=== PATIENT | female | born 1945 | race Hispanic/Latino ===

== ENCOUNTER 2020-01-26 06:04 | Emergency (ER) | payer MEDICARE, OTHER ==
--- NOTE | 2020-01-26 07:12 | CT ---
CT OF BRAIN WITHOUT CONTRAST: Date: 01/26/2020 INDICATION: History of fall. COMPARISON: Prior exam dated 08/02/2014. FINDINGS: There is generalized cerebral and cerebellar atrophy with mild chronic small vessel white matter isch emic change. Septum pellucidum and third ventricle are midline. No acute infarct, hemorrhage, or hydr ocephalus is present. Skull intact. Mild mucosal thickening seen within the ethmoid air cells. There is a left parietal scalp contusion. IMPRESSION: 1. No acute intracranial abnormality. 2. Left parietal scalp contusion. 3. Generalized cerebral and cerebellar atrophy. 4. Mild chronic small vessel white matter ischemic change. POS: BH
--- NOTE | 2020-01-26 07:14 | CT ---
CT CERIVCAL SPINE WITHOUT CONTRAST: Date: 01/26/2020 INDICATION: History of fall with neck pain. COMPARISON: Prior exam dated 08/02/2014. FINDINGS: No definite acute fracture or subluxation is evident. There is worsening multilevel disc degenerative disease of the cervical spine most pronounced at C3-4, C6-7, and C7-T1. Craniocervical junction is n ormal appearing. The lung apices are normal appearing. Heterogeneous appearance of the thyroid gland is similar to the comparison study. A few mildly prominent lymph nodes are seen within the upper medi astinum, the largest seen within the right paratracheal region measuring 1.2 cm. This is nonspecific. Overt pathologically enlarged lymph nodes are seen within the neck. There is incidental small left p leural effusion seen within the left hemithorax. IMPRESSION: 1. No acute fracture or subluxation is demonstrated. 2. Worsening multilevel moderate to severe cervical spondylosis. 3. Nonspecific mildly enlarged lymph nodes within the upper mediastinum. 4. Incidental small left pleural effusion. Recommend consideration for chest radiograph. POS: JANNIE
--- NOTE | 2020-01-26 07:17 | CT ---
CT FACE WITHOUT IV CONTRAST: Date: 01/26/2020 INDICATION: History of fall with facial injury. COMPARISON: None. FINDINGS: There is a mild contusion overlying the nasal bridge. There is a mild contusion overlying the right f rontal scalp. Nasal bones appear intact. Nasal processes of the maxilla are intact. The maxillary sin us marin are intact. The zygomatic arches are intact. The mandible is intact. The pterygoid plates ar e intact. The orbital rims and orbital floors are intact. The orbital roof and orbital marin are inta ct. Visualized cervical spine demonstrates moderate to severe degenerative change. Visualized intracr anial contents are within normal limits. Visualized orbits are within normal limits. No air-fluid lev els seen within the paranasal sinuses. Mild mucosal thickening seen within the ethmoid air cells. IMPRESSION: 1. No acute fracture. 2. Mild paranasal sinus disease. POS: BH
--- NOTE | 2020-01-26 07:53 | RAD ---
THREE VIEWS RIGHT WRIST: COMPARISON: 08/02/2014. HISTORY: Right wrist pain after trauma. FINDINGS: Three views right wrist show no evidence of acute fracture or dislocation . There is severe radiocarp al joint space narrowing and osteophyte formation as well as widening of the scapholunate interval. Vascular calcifications are seen. IMPRESSION: Severe right wrist osteoarthritis without acute osseous abnormality. POS: C
== END 2020-01-26 07:57 | disposition home or self-care (01) ==
LOC: ERS 06:04
DX: S01.511A Laceration without foreign body of lip, initial encounter (principal); S63.501A Unspecified sprain of right wrist, initial encounter; E11.9 Type 2 diabetes mellitus without complications; E78.5 Hyperlipidemia, unspecified; E78.00 Pure hypercholesterolemia, unspecified; I11.0 Hypertensive heart disease with heart failure; I50.9 Heart failure, unspecified; F32.9 Major depressive disorder, single episode, unspecified; Z99.2 Dependence on renal dialysis; E66.9 Obesity, unspecified; W01.0XXA Fall on same level from slipping, tripping and stumbling without subsequent striking against object, initial encounter
CPT/HCPCS: 70450; 70486; 72125; 94760

== ENCOUNTER 2020-12-06 13:34 | Inpatient (IN) | payer MEDICARE, OTHER ==
[2020-12-06 14:11] LABS: #Eosinphils 0.1 thou/uL (0.0-0.7); #Lymphocytes 1.2 thou/uL (1.20-3.40); #Monocytes 0.5 thou/uL (0.11-0.59); #Neutrophils 15.8 thou/uL (1.40-6.50); %Basophils 0.1 % (0.0-1.0); %Eosinophils 0.5 % (0.0-10.0); %Lymphocytes 6.7 % (21.0-51.0); %Neutrophils 89.8 % (42.0-75.0); Mean Corpuscular HGB CONC 34.2 g/dL (32.0-36.0); Mean Corpuscular Volume 96.4 fL (78.0-98.0); Mean Platelet Volume 7.1 fL (7.4-10.4); Platelet Count 196 thou/uL (130-400); RBC Distribution Width 13.9 % (11.5-14.5); Red Blood Cell (RBC) Count 3.65 mill/uL (4.20-5.40); White Blood Cell (WBC) Count 17.7 thou/uL (4.8-10.8)
--- NOTE | 2020-12-06 14:11 | RAD ---
XR Chest 1 View Portable HISTORY: Shortness of breath, chest pain. Missed dialysis COMPARISON: 05/05/2020 FINDINGS: The heart is enlarged. There is pulmonary vascular congestion. No pneumothoraces or large e ffusions are seen. A small left pleural effusion is present. There are multifocal patchy opacities, left greater than right. No pneumothoraces are seen.
[2020-12-06] MEDS ORDERED: Aspirin 325 MG TAB ONE (14:24)
[2020-12-06] MEDS ORDERED: Nitroglycerin 0.4 MG TAB 1 EACH ONE (14:24)
[2020-12-06] MEDS ORDERED: Furosemide 40 MG/4 ML VIAL ONE (14:25)
[2020-12-06] MEDS ORDERED: Nitroglycerin 2% Ointment 1 INCH/1 GM Packet ONE ×2 (14:25→15:07)
[2020-12-06] MEDS ORDERED: hydrALAZINE 20 MG/ML VIAL ONE (15:09)
[2020-12-06 15:19] LABS: Calc. Creatinine Clearance 0 mL/min (70-130)
[2020-12-06 15:20] LABS: ALT (SGPT) Less than 7 U/L (8-55); AST (SGOT) 12 U/L (5-34); Alkaline Phosphatase 181 U/L (40-110); CK (CPK) 38 U/L (29-168); Globulin 3.8 g/dL (2.4-3.5)
[2020-12-06 15:21] LABS: Albumin 3.8 g/dL (3.4-4.8); Anion Gap 22 mmol/L (10-20); BUN (Urea Nitrogen) 99 mg/dL (9.8-20.1); Bilirubin, Total 0.9 mg/dL (0.2-1.2); Calcium 8.3 mg/dL (7.8-10.44); Carbon Dioxide 22 mmol/L (23-31); Chloride 98 mmol/L (98-107); Glucose 358 mg/dL (83-110); Potassium 5.7 mmol/L (3.5-5.1); Protein, Total 7.6 g/dL (5.8-8.1); Sodium 136 mmol/L (136-145)
[2020-12-06] MEDS ORDERED: Ondansetron PF 4 MG/2 ML Vial IVP PRN (15:44)
[2020-12-06] MEDS ORDERED: Bisacodyl 5 MG TAB PO PRN (15:44)
[2020-12-06] MEDS ORDERED: Acetaminophen 325 MG TAB PO PRN (15:44)
[2020-12-06] MEDS ORDERED: cefTRIAXone\\ROCEPHIN 1 GM VIAL ONE (16:32)
--- NOTE | 2020-12-06 16:33 | PDOC.HHP ---
Hospitalist HPI "I am weak and SOB". History of Present Illness: Ms. Mata is a 75-year-old female whose past medical history includes end- stage renal disease on hemodialysis on Mondays, Wednesdays and Fridays who presented to the hospital with above complaint. She unfortunately missed her dialysis yesterday due to the inclement weather the past through the region in the last 48 hours. She reported that right around noon today which would have been about 5 hours ago she started having worsening shortness of breath and gene ralized weakness. She is pretty compliant with her dialysis sessions but due to the weather she w as unable to go yesterday. She was having difficulty breathing both at rest and on exertion and she eventually decided to come here today for further evaluation. Since being admitted she has had further evaluation with a chest x- ray that appears to show pulmonary vascular congestion likely related to pulmonary edema. She was extremely hypertensive with a blood pressure of 230/130. In addition to shortness of breath and generalized weakness she also complained about cough that was mostly dry. She has decrease exercise tolerance. She did have some chest tightness/pressure. She denied any palpitations. She had no fever, no nausea and no vomiting. Other pertinent information includes a history of congestive heart failure, hypertensive heart disease, diabetes, coronary artery disease with prior stents. She is going to be admitted for acute on chronic congestive heart failure exacerbation likely secondary to volume overload from renal failure and missing dialysis. The emergency room doctor has consulted the on-call diazo technician Dr. Nelson who has given some orders for dialysis. She received nitroglycerin sublingual and the Nitropaste with mild improvement in her blood pressures. She remains hypertensive at this time with a systolic around 170. I did discuss the patient's CODE STATUS with her and she wants to be a full code in the event of any adverse cardiopulmonary arrest. Her son will make medical decisions for her if she is unable to. Allergies/Adverse Reactions: Allergy/AdvReac Type Severity Reaction Status Date / Time ibuprofen Allergy Mild Nausea Verified 01/10/20 17:05 adhesive tape Allergy Verified 01/10/20 17:05 ciprofloxacin Allergy Verified 01/10/20 17:05 ciprofloxacin HCl Allergy Verified 01/10/20 17:05 [From Cipro] Home Medications: Medication Instructions Recorded Confirmed Type Cholecalciferol (Vitamin D3) 1 capsule PO DAILY 12/31/13 07/19/15 History [Vitamin D3] Gabapentin 300 mg PO TID 12/31/13 07/19/15 History Pravastatin Sodium [Pravachol] 40 mg PO HS 12/31/13 07/19/15 History Albuterol Sulfate [Proair HFA] 2 puff INH Q6HR PRN 02/15/14 07/19/15 History Aspirin [Ecotrin Low Strength] 81 mg PO DAILY 02/15/14 07/19/15 History Insulin Glargine,Hum.Rec.Anlog 20 unit SC QAM #0 pen 06/03/14 07/21/15 Rx [Lantus Solostar] Amlodipine [Norvasc] 5 mg PO DAILY 12/06/14 07/19/15 History Insulin Glargine,Hum.Rec.Anlog 30 unit SQ QPM 12/06/14 07/21/15 History [Lantus Solostar] Carvedilol [Coreg] 25 mg PO BID 07/19/15 07/19/15 History HYDROcodone Bit/APAP 10/325 [Elora] 1 - 2 tab PO Q8HR PRN 07/19/15 07/19/15 History Metoclopramide HCl 5 mg PO DAILY 07/19/15 07/19/15 History Furosemide [Lasix] 40 mg PO BID 07/21/15 07/21/15 History Ipratropium [Atrovent HFA] 2 puff INH BID #0 07/21/15 07/19/15 Rx Ipratropium/Albuterol Sulfate 3 ml NEB QID PRN 07/21/15 07/21/15 History [DuoNeb] Acetaminophen [Tylenol Regular 650 mg PO Q4H PRN tab 04/27/20 Rx Strength] Albuterol Sulfate [Proventil Hfa] 2 puff INH [id number] aer 04/27/20 Rx Artificial Tears [Tears Naturale 2 drop EA EYE PRN PRN each 04/27/20 Rx Free] Ascorbic Acid [Vitamin C] 500 mg PO BID tab 04/27/20 Rx Azithromycin [Zithromax] 500 mg IVPB Q24HR vial 04/27/20 Rx Benzonatate [Tessalon] 100 mg PO Q6H PRN cap 04/27/20 Rx Bisacodyl [Dulcolax] 10 mg OR DAILYPRN PRN supp 04/27/20 Rx Calcium Carbonate [Tums] 1,000 mg PO Q4H PRN tab 04/27/20 Rx Cepastat Lozenges 1 stew PO Q2H PRN stew 04/27/20 Rx Dextrose 50% 25 gm SLOW IVP PRN PRN syringe 04/27/20 Rx Ferrous Sulfate [Feosol] 325 mg PO QAM-WM tab 04/27/20 Rx Glucagon 1 mg IM PRN PRN vial 04/27/20 Rx Heparin 5,000 units SC TID vial 04/27/20 Rx Loperamide HCl [Imodium] 2 mg PO PRN PRN cap 04/27/20 Rx Loratadine [Claritin] 10 mg PO DAILYPRN PRN tab 04/27/20 Rx Metoclopramide HCl [Reglan] 5 mg IVP Q6H PRN vial 04/27/20 Rx Saccharomyces boulardii [Florastor] 250 mg PO DAILY cap 04/27/20 Rx Sennosides/Docusate Sodium 2 tab PO BID PRN tab 04/27/20 Rx [Senokot S] Zinc Sulfate 220 mg PO BID cap 04/27/20 Rx cefTRIAXone\\ROCEPHIN [Rocephin] 1 gm IVPB Q24HR vial 04/27/20 Rx hydrALAZINE [Apresoline] 10 mg SLOW IVP Q4H PRN vial 04/27/20 Rx Past History: PMHx: PSHx: FHx: Social: Hospitalist HPI ROS Constitutional: reports: sweats, weakness Respiratory: reports: cough, dry, shortness of breath, SOB with excertion Cardiovascular: reports: chest pain, palpitations, orthopnea, paroxysmal noc. dyspnea, edema Gastrointestinal: denies: nausea, vomiting, abdominal pain, diarrhea, constipation, melena, hematochezia, other Genitourinary: denies: dysuria, frequency, incontinence, hematuria, retention, other Musculoskeletal: denies: neck pain, shoulder pain, arm pain, back pain, hand pain, leg pain, foot pain, other Skin: denies: rash, lesions, keely, bruising, other Neurological: reports: weakness All other systems reviewed; all pertinent +/- noted in HPI/Subj Hospitalist Exam General Appearance: awake alert, ill appearing General - other findings: She has conversational dyspnea. ENT: normocephalic atraumatic, no oropharyngeal lesions, dry oral mucosa Neck: supple, symmetric, JVD Heart: RRR, irregular, murmur present, II/IV Respiratory: normal chest expansion, rales Gastrointestinal: soft, non-tender, non-distended, normal bowel sounds, no palpable masses Extremities: 1+ LE edema Neurological: cranial nerve grossly intact, normal sensation to touch Psychiatric: normal affect, normal behavior, A&O x 3, oriented to person Hospitalist Results Result Diagrams: 12/06/20 13:58 12/06/20 13:58 Lab results: Laboratory Last Values WBC 17.7 thou/uL (4.8-10.8) H 12/06/20 13:58 RBC 3.65 mill/uL (4.20-5.40) L 12/06/20 13:58 Hgb 12.0 g/dL (12.0-16.0) 12/06/20 13:58 Hct 35.2 % (36.0-47.0) L 12/06/20 13:58 MCV 96.4 fL (78.0-98.0) 12/06/20 13:58 MCH 33.0 pg (27.0-31.0) H 12/06/20 13:58 MCHC 34.2 g/dL (32.0-36.0) 12/06/20 13:58 RDW 13.9 % (11.5-14.5) 12/06/20 13:58 Plt Count 196 thou/uL (130-400) 12/06/20 13:58 MPV 7.1 fL (7.4-10.4) L 12/06/20 13:58 Neutrophils % 89.8 % (42.0-75.0) H 12/06/20 13:58 Lymphocytes % 6.7 % (21.0-51.0) L 12/06/20 13:58 Monocytes % 3.0 % (0.0-10.0) 12/06/20 13:58 Eosinophils % 0.5 % (0.0-10.0) 12/06/20 13:58 Basophils % 0.1 % (0.0-1.0) 12/06/20 13:58 Neutrophils # 15.8 thou/uL (1.40-6.50) H 12/06/20 13:58 Lymphocytes # 1.2 thou/uL (1.20-3.40) 12/06/20 13:58 Monocytes # 0.5 thou/uL (0.11-0.59) 12/06/20 13:58 Eosinophils # 0.1 thou/uL (0.0-0.7) 12/06/20 13:58 Basophils # 0.0 thou/uL (0.0-0.2) 12/06/20 13:58 Sodium 136 mmol/L (136-145) 12/06/20 13:58 Potassium 5.7 mmol/L (3.5-5.1) H 12/06/20 13:58 Chloride 98 mmol/L (98-107) 12/06/20 13:58 Carbon Dioxide 22 mmol/L (23-31) L 12/06/20 13:58 Anion Gap 22 mmol/L (10-20) H 12/06/20 13:58 BUN 99 mg/dL (9.8-20.1) H 12/06/20 13:58 Creatinine 8.03 mg/dL (0.6-1.1) H 12/06/20 13:58 Estimated GFR (MDRD) 5 12/06/20 13:58 Glucose 358 mg/dL (83-110) H 12/06/20 13:58 Calcium 8.3 mg/dL (7.8-10.44) 12/06/20 13:58 Total Bilirubin 0.9 mg/dL (0.2-1.2) 12/06/20 13:58 AST 12 U/L (5-34) 12/06/20 13:58 ALT Less than 7 U/L (8-55) L 12/06/20 13:58 Alkaline Phosphatase 181 U/L (40-110) H 12/06/20 13:58 Creatine Kinase 38 U/L (29-168) 12/06/20 13:58 Troponin I 0.023 ng/mL (< 0.028) 12/06/20 13:58 B-Natriuretic Peptide 2057.4 pg/mL (0-100) H 12/06/20 13:58 Serum Total Protein 7.6 g/dL (5.8-8.1) 12/06/20 13:58 Albumin 3.8 g/dL (3.4-4.8) 12/06/20 13:58 Globulin 3.8 g/dL (2.4-3.5) H 12/06/20 13:58 Albumin/Globulin Ratio 1.0 g/dL (1.2-2.2) L 12/06/20 13:58 Hospitalist H&P A/P (1) Acute respiratory failure with hypoxia Code(s): J96.01 - ACUTE RESPIRATORY FAILURE WITH HYPOXIA Status: Acute (2) Acute on chronic diastolic heart failure due to coronary artery disease Code(s): I50.33 - ACUTE ON CHRONIC DIASTOLIC (CONGESTIVE) HEART FAILURE; I25.10 - ATHSCL HEART DISEASE OF [place] CORONARY ARTERY W/O ANG PCTRS Status: Acute (3) Hypertensive heart and chronic kidney disease with acute diastolic congestive heart failure Code(s): I13.0 - HYP HRT & CHR KDNY DIS W HRT FAIL AND STG 1-4/UNSP CHR KDNY; I50.31 - ACUTE DIASTOLIC (CONGESTIVE) HEART FAILURE Status: Acute (4) End-stage renal disease on hemodialysis Code(s): N18.6 - END STAGE RENAL DISEASE; Z99.2 - DEPENDENCE ON RENAL DIALYSIS Status: Acute (5) Hyperkalemia Code(s): E87.5 - HYPERKALEMIA Status: Acute Plan: #1. Acute respiratory failure with hypoxia. Secondary to congestive heart failure exacerbation likely diastolic dysfunction. She will continue O2 supplementation and wean off as tolerated. 2. Acute on chronic diastolic heart failure exacerbation. Likely secondary to volume overload from end-stage renal disease. She needs emergent dialysis and I have discussed the case with the diazo technician who has written some orders. Check echocardiogram. 3. Hyperkalemia. The patient is going for dialysis here in a little bit. Discussed with the diazo technician. 4. End-stage renal disease on hemodialysis. Defer to nephrology about timing of dialysis. 5. Diabetes type 2. We will utilize sliding scale coverage at this time. #6. Concern for superimposed pneumonia. I agree with obtaining blood cultures and empiric antibiotic.
[2020-12-06 16:38] LABS: SARS-CoV-2 NAA Rapid Test Not Detected (NotDetected)
[2020-12-06 18:31] LABS: Troponin I 0.038 ng/mL (< 0.028)
[2020-12-06] MEDS ORDERED: Azithromycin 500 MG VIAL ONE (18:37)
[2020-12-06] MEDS: Sevelamer Carbonate 800 MG TAB PO SCH (19:00)
[2020-12-06] MEDS: Carvedilol 25 MG TAB PO SCH (19:00)
--- NOTE | 2020-12-06 20:32 | CON ---
DATE OF CONSULTATION: 12/06/2020 CONSULTING PHYSICIAN: REASON FOR CONSULTATION: End-stage renal disease evaluation and care. REASON FOR ADMISSION: Shortness of breath and weakness. HISTORY OF PRESENT ILLNESS: This is a 75-year-old female with history of end-stage renal disease, type 2 diabetes, hypertension, came to the hospital with shortness of breath and weakness and was found to have hyperkalemia and pulmonary vascular congestion. The patient missed dialysis due to the inclement weather and Nephrology consulted for maintenance hemodialysis. PAST MEDICAL HISTORY: Positive for end-stage renal disease, type 2 diabetes, hypertension, vitamin D deficiency, coronary artery disease, CHF. PAST SURGICAL HISTORY: Dialysis access placement. HOME MEDICATIONS: Reviewed. ALLERGIES: TO IBUPROFEN, CIPROFLOXACIN. SOCIAL HISTORY: No smoking, alcohol, or illicit drugs. FAMILY HISTORY: No history of kidney disease. REVIEW OF SYSTEMS: The following complete review of systems was negative, unless otherwise mentioned in the HPI or below: Constitutional: Weight loss or gain, ability to conduct usual activities. Skin: Rash, itching. Eyes: Double vision, pain. ENT/Mouth: Nose bleeding, neck stiffness, pain, tenderness. Cardiovascular: Palpitations, dyspnea on exertion, orthopnea. Respiratory: Shortness of breath, wheezing, cough, hemoptysis, fever or night sweats. Gastrointestinal: Poor appetite, abdominal pain, heartburn, nausea, vomiting, constipation, or diarrhea. Genitourinary: Urgency, frequency, dysuria, nocturia. Musculoskeletal: Pain, swelling. Neurologic/Psychiatric: Anxiety, depression. Allergy/Immunologic: Skin rash, bleeding tendency. PHYSICAL EXAMINATION: GENERAL: This is a morbidly obese female, in no apparent distress. VITAL SIGNS: Reviewed. HEENT: Atraumatic, normocephalic. Oral mucosa moist. NECK: Supple. CV: S1 and S2, rate and rhythm regular. RESPIRATORY: Clear. GI: Abdomen is soft. MUSCULOSKELETAL: 1+ edema. DERMATOLOGIC: No skin rash. NEUROLOGIC: Alert and awake. PSYCHIATRIC: Mood and affect normal. LABORATORY DATA: Hemoglobin is 12.0. Potassium 5.7, BUN is 99, and creatinine is 8.03. ASSESSMENT AND PLAN: 1. End-stage renal disease. We will continue on hemodialysis as tolerated. 2. Edema. 3. Hypertension. 4. Hyperkalemia. 5. Acidosis. 6. Hypoalbuminemia. 7. Morbid obesity. 8. Acute hypoxic respiratory failure. 9. Fluid overload. Plan is emergent dialysis. Dialysis nurse notified. We will continue to follow. Thank you for the consult. Job ID: [id number]
[2020-12-06 21:27] LABS: Troponin I 0.049 ng/mL (< 0.028)
[2020-12-06] MEDS: Gabapentin 300 MG CAP PO SCH (21:33)
[2020-12-07 01:44] LABS: HBSAg Index 0.36 S/CO (0-0.99); Hep B Surf Ag Non-Reactive S/CO (NonReactive)
[2020-12-07] MEDS ORDERED: Acetaminophen 325 MG TAB ONE (03:10)
[2020-12-07] MEDS: Furosemide 40 MG/4 ML VIAL SLOW IVP SCH ×2 (06:00→13:35)
[2020-12-07 07:10] LABS: #Eosinphils 0.1 thou/uL (0.0-0.7); #Lymphocytes 2.3 thou/uL (1.20-3.40); #Monocytes 0.5 thou/uL (0.11-0.59); #Neutrophils 7.7 thou/uL (1.40-6.50); %Basophils 0.1 % (0.0-1.0); %Eosinophils 1.1 % (0.0-10.0); %Lymphocytes 21.4 % (21.0-51.0); %Neutrophils 72.4 % (42.0-75.0); Hemoglobin 10.5 g/dL (12.0-16.0); Mean Corpuscular HGB CONC 33.7 g/dL (32.0-36.0); Mean Corpuscular Hemoglobin 32.6 pg (27.0-31.0); Mean Corpuscular Volume 96.7 fL (78.0-98.0); Mean Platelet Volume 7.2 fL (7.4-10.4); Platelet Count 167 thou/uL (130-400); Red Blood Cell (RBC) Count 3.22 mill/uL (4.20-5.40); White Blood Cell (WBC) Count 10.6 thou/uL (4.8-10.8)
[2020-12-07 07:19] LABS: Anion Gap 17 mmol/L (10-20); BUN (Urea Nitrogen) 55 mg/dL (9.8-20.1); Calc. Creatinine Clearance 0 mL/min (70-130); Calcium 8.1 mg/dL (7.8-10.44); Carbon Dioxide 27 mmol/L (23-31); Chloride 98 mmol/L (98-107); Glucose 175 mg/dL (83-110); Magnesium 2.1 mg/dL (1.6-2.6); Potassium 3.9 mmol/L (3.5-5.1); Sodium 138 mmol/L (136-145)
[2020-12-07] MEDS ORDERED: Enoxaparin Sodium 30 MG/0.3 ML SYRINGE ONE (09:58)
[2020-12-07] MEDS: Enoxaparin Sodium 30 MG/0.3 ML SYRINGE SC SCH (10:01)
[2020-12-07] MEDS: Gabapentin 300 MG CAP PO SCH ×3 (10:02→21:31)
[2020-12-07] MEDS: Sevelamer Carbonate 800 MG TAB PO SCH ×3 (10:02→17:13)
[2020-12-07] MEDS: Carvedilol 25 MG TAB PO SCH ×2 (10:03→17:13)
[2020-12-07] MEDS: Famotidine 20 MG TAB PO SCH (10:03)
[2020-12-07 12:10] VITALS: BMI 48.5
[2020-12-07] MEDS ORDERED: Nortriptyline 10 MG CAP ONE (12:28)
--- NOTE | 2020-12-07 16:15 | PRG ---
DATE OF SERVICE: 12/07/2020 SUBJECTIVE: Patient was seen and examined at bedside and overnight events noted. Patient denies any shortness of breath or chest pain or palpitation. No history of nausea or vomiting or diarrhea or fever or chills or cramps. OBJECTIVE: GENERAL: This is a morbidly obese female, in no apparent distress. VITAL SIGNS: Temperature 98.2. Heart Rate 60. Respiratory rate 18. Blood Pressure 126/59. HEENT: Atraumatic, normocephalic. Oral mucosa is moist. NECK: Supple. CARDIOVASCULAR: S1, S2 heard. Rate and rhythm regular. RESPIRATORY: Clear to auscultation. GASTROINTESTINAL: Abdomen is soft. MUSCULOSKELETAL: No tenderness. No edema. DERMATOLOGIC: No skin rash. NEUROLOGIC: Alert and awake and oriented x3. No focal neurologic deficits. Moving all the extremities. PSYCHIATRIC: Mood and affect normal. LABORATORY DATA: Potassium 3.9, BUN 55, creatinine is 5.4. ASSESSMENT AND PLAN: 1. End-stage renal disease. Continue dialysis as tolerated. 2. Edema, controlled. 3. Hypertension. 4. Hyperkalemia. 5. Acidosis. 6. hypoalbuminemia. 7. Morbid obesity. 8. Acute hypoxic respiratory failure. 9. Fluid overload. Plan to have dialysis. The patient already had dialysis and labs are better. We will recheck labs in the morning. Continue dialysis as needed. Job ID: [id number]
[2020-12-07] MEDS: cefTRIAXone\\ROCEPHIN 1 GM in Sodium Chloride 0.9% 100 ML IVPB SCH (17:13)
--- NOTE | 2020-12-07 17:23 | PDOC.HOSPP ---
- Subjective Encounter Date: 12/07/20 Encounter Time: 17: Subjective: Today the patient is seen and evaluated. She seems to be doing a lot better. She is not as dyspneic. She had her dialysis and started feeling better. Her blood pressure also is controlled. - Objective Vital Signs & Weight: Vital Signs (12 hours) Temp Pulse Pulse Pulse Resp BP BP 12/07/20 13:15 73 65 134/63 126/59 L 12/07/20 12:44 98.2 F 60 19 BP Pulse Ox 12/07/20 13:15 12/07/20 12:44 156/67 H 100 Weight Weight 265 lb 9.34 oz Result Diagrams: 12/07/20 06:43 12/07/20 06:43 Additional Labs: Accuchecks 12/07/20 16:26 POC Glucose 286 H Radiology Reviewed by me: Yes EKG Reviewed by me: Yes Hospitalist ROS - Review of Systems Respiratory: reports: shortness of breath, SOB with excertion Gastrointestinal: reports: nausea Neurological: reports: weakness - Medication Medications: Active Medications Generic Name Dose Route Start Last Admin Trade Name Freq PRN Reason Stop Dose Admin Acetaminophen 650 mg 12/06/20 15:44 12/07/20 03:15 Acetaminophen 325 Mg Tab PO 650 mg Q4H PRN Administration Headache/Fever/Mild Pain (1-3) Carvedilol 25 mg 12/06/20 17:00 12/07/20 17:13 Carvedilol 25 Mg Tab PO 25 mg BID-WM NANCIE Administration Enoxaparin Sodium 30 mg 12/07/20 09:00 12/07/20 10:01 Enoxaparin Sodium 30 Mg/0.3 Ml Syringe SC 30 mg 0900 NANCIE Administration Famotidine 20 mg 12/07/20 09:00 12/07/20 10:03 Famotidine 20 Mg Tab PO 20 mg DAILY NANCIE Administration Furosemide 40 mg 12/07/20 06:00 12/07/20 06:00 Furosemide 40 Mg/4 Ml Vial SLOW IVP Not Given 0600,1400 NANCIE Gabapentin 300 mg 12/06/20 21:00 12/07/20 13:54 Gabapentin 300 Mg Cap PO 300 mg TID NANCIE Administration Ceftriaxone Sodium 1 gm/ 100 mls @ 200 mls/hr 12/07/20 16:00 12/07/20 17:13 Sodium Chloride IVPB 100 mls Q24HR NANCIE Administration Isosorbide Mononitrate 30 mg 12/07/20 09:00 12/07/20 10:01 Isosorbide Mononitrate Er 30 Mg Tab PO 30 mg DAILY NANCIE Administration Sertraline HCl 100 mg 12/07/20 09:00 12/07/20 10:02 Sertraline Hcl 100 Mg Tab PO 100 mg DAILY NANCIE Administration Sevelamer Carbonate 800 mg 12/06/20 17:00 12/07/20 17:13 Sevelamer Carbonate 800 Mg Tab PO 800 mg TID- NANCIE Administration Hospitalist Exam Vitals: Vital Signs (12 hours) Temp Pulse Pulse Pulse Resp BP BP 12/07/20 13:15 73 65 134/63 126/59 L 12/07/20 12:44 98.2 F 60 19 BP Pulse Ox 12/07/20 13:15 12/07/20 12:44 156/67 H 100 Weight Weight 265 lb 9.34 oz General Appearance: NAD, awake alert Eye: PERRL, anicteric sclera ENT: normocephalic atraumatic, no oropharyngeal lesions Neck: supple, symmetric, no JVD Heart: RRR, no murmur, no gallops, no rubs, normal peripheral pulses Respiratory: CTAB, no wheezes, no rales Gastrointestinal: soft, non-tender Neurological: cranial nerve grossly intact Psychiatric: normal affect, normal behavior, A&O x 3 Hosp A/P (1) Acute respiratory failure with hypoxia Code(s): J96.01 - ACUTE RESPIRATORY FAILURE WITH HYPOXIA Status: Acute (2) Acute on chronic diastolic heart failure due to coronary artery disease Code(s): I50.33 - ACUTE ON CHRONIC DIASTOLIC (CONGESTIVE) HEART FAILURE; I25.10 - ATHSCL HEART DISEASE OF [place] CORONARY ARTERY W/O ANG PCTRS Status: Acute (3) Hypertensive heart and chronic kidney disease with acute diastolic congestive heart failure Code(s): I13.0 - HYP HRT & CHR KDNY DIS W HRT FAIL AND STG 1-4/UNSP CHR KDNY; I50.31 - ACUTE DIASTOLIC (CONGESTIVE) HEART FAILURE Status: Acute (4) End-stage renal disease on hemodialysis Code(s): N18.6 - END STAGE RENAL DISEASE; Z99.2 - DEPENDENCE ON RENAL DIALYSIS Status: Acute (5) Hyperkalemia Code(s): E87.5 - HYPERKALEMIA Status: Acute - Plan old records reviewed/req, plan discussed w/ family, PT/OT #1. Acute respiratory failure with hypoxia. Likely secondary to below. Continue O2 supplementation and wean off as tolerated. 2. Acute on chronic heart failure exacerbation from diastolic dysfunction. She is getting diuretics and also had her dialysis. She appears to be improved. 3. Hypertensive heart and chronic kidney disease with congestive heart failure. Her blood pressure seems to be better today. She responded nicely to dialysis and resumption of her blood pressure medications. 4. End-stage renal disease on dialysis. Dialysis has been resumed. 5. Hyperkalemia. Potassium appears to be corrected since dialysis.
[2020-12-07] MEDS: HYDROcodone/Acetaminophen 5/325 mg Tablet PO PRN (17:29)
[2020-12-08 04:59] LABS: #Eosinphils 0.1 thou/uL (0.0-0.7); #Lymphocytes 2.1 thou/uL (1.20-3.40); #Monocytes 0.6 thou/uL (0.11-0.59); #Neutrophils 5.7 thou/uL (1.40-6.50); %Basophils 0.3 % (0.0-1.0); %Eosinophils 1.7 % (0.0-10.0); %Lymphocytes 24.8 % (21.0-51.0); %Monocytes 7.2 % (0.0-10.0); %Neutrophils 65.9 % (42.0-75.0); Mean Corpuscular HGB CONC 32.4 g/dL (32.0-36.0); Mean Corpuscular Hemoglobin 31.2 pg (27.0-31.0); Mean Corpuscular Volume 96.3 fL (78.0-98.0); Mean Platelet Volume 7.1 fL (7.4-10.4); Platelet Count 154 thou/uL (130-400); RBC Distribution Width 13.8 % (11.5-14.5); Red Blood Cell (RBC) Count 3.19 mill/uL (4.20-5.40); White Blood Cell (WBC) Count 8.6 thou/uL (4.8-10.8)
[2020-12-08] MEDS: Furosemide 40 MG/4 ML VIAL SLOW IVP SCH (05:13)
[2020-12-08 05:21] LABS: Anion Gap 16 mmol/L (10-20); BUN (Urea Nitrogen) 74 mg/dL (9.8-20.1); Calc. Creatinine Clearance 15 mL/min (70-130); Calcium 7.9 mg/dL (7.8-10.44); Carbon Dioxide 28 mmol/L (23-31); Chloride 98 mmol/L (98-107); Glucose 152 mg/dL (83-110); Magnesium 2.2 mg/dL (1.6-2.6); Potassium 4.7 mmol/L (3.5-5.1); Sodium 137 mmol/L (136-145)
[2020-12-08 06:18] LABS: Legionella Urinary Ag Negative (Negative); Strep pneumo Urine Ag NEGATIVE (NEGATIVE)
[2020-12-08] MEDS: Gabapentin 300 MG CAP PO SCH ×2 (08:44→15:00)
[2020-12-08] MEDS: Sevelamer Carbonate 800 MG TAB PO SCH ×3 (08:45→18:51)
[2020-12-08] MEDS: Famotidine 20 MG TAB PO SCH (08:45)
[2020-12-08] MEDS: Carvedilol 25 MG TAB PO SCH ×2 (08:45→18:53)
[2020-12-08] MEDS: Enoxaparin Sodium 30 MG/0.3 ML SYRINGE SC SCH (08:45)
[2020-12-08] MEDS ORDERED: Sevelamer Carbonate 800 MG TAB PO SCH (12:00)
[2020-12-08] MEDS ORDERED: HumaLOG 300 UNITS/3 ML VIAL SC PRN (12:00)
[2020-12-08] MEDS: HYDROcodone/Acetaminophen 5/325 mg Tablet PO PRN ×2 (12:15→21:04)
--- NOTE | 2020-12-08 14:34 | PRG ---
DATE OF SERVICE: 12/08/2020 SUBJECTIVE: Patient was seen and examined at bedside and overnight events noted. Patient denies any shortness of breath or chest pain or palpitation. No history of nausea or vomiting or diarrhea or fever or chills or cramps. OBJECTIVE: General: This is a morbidly obese female, in no apparent distress. Vital Signs: Temperature 98.2. Heart Rate 57. Respiratory rate 16. Blood pressure 138/76. HEENT: Atraumatic, normocephalic. Oral mucosa is moist. Neck: Supple. Cardiovascular: S1, S2 heard. Rate and rhythm regular. Respiratory: Clear to auscultation. Gastrointestinal: Abdomen is soft. Musculoskeletal: No tenderness. No edema. Dermatologic: No skin rash. Neurologic: Alert and awake and oriented x3. No focal neurologic deficits. Moving all the extremities. Psychiatric: Mood and affect normal. LABORATORY DATA: Potassium 4.7, BUN is 74, creatinine is 6.5. ASSESSMENT AND PLAN: 1. End-stage renal disease. Plan to have 2 hours of dialysis today and then continue dialysis Saturday, Saturday, and Saturday. 2. Edema, remove fluid. 3. Hyperkalemia, better. 4. Acidosis. 5. Hypoalbuminemia. 6. Morbid obesity. 7. Acute hypoxic respiratory failure, better. 8. Fluid overload. Continue to remove fluid with dialysis. We will have 2 hours of dialysis today and then continue dialysis Saturday, Saturday, and Saturday, starting tomorrow. Dialysis nurse notified. Advised to limit potassium and fluid intake. Job ID: [id number]
[2020-12-08] MEDS ORDERED: Gabapentin 300 MG CAP PO SCH (15:00)
--- NOTE | 2020-12-08 16:13 | PDOC.HOSPP ---
- Subjective Encounter Date: 12/08/20 Encounter Time: 16:11 Subjective: Ms. Mata continues to improve clinically. She is at her baseline O2 supplementation. She is diuresing and also had her dialysis. Her blood pressure remains controlled. Overall I believe she is clinically stable and I a m hoping that she will be medically optimized for discharge home tomorrow. - Objective Vital Signs & Weight: Vital Signs (12 hours) Temp Pulse Pulse Pulse Resp BP BP 12/08/20 11:25 98.2 F 57 L 16 12/08/20 10:35 55 L 58 L 138/76 142/61 H 12/08/20 07:35 98.4 F 58 L 18 12/08/20 05:12 12/08/20 04:30 97.7 F 58 L 18 BP BP Pulse Ox Pulse Ox Pulse Ox 12/08/20 11:25 138/76 100 12/08/20 10:35 98 99 12/08/20 07:35 147/66 H 99 12/08/20 05:12 129/58 L 12/08/20 04:30 185/77 H 99 Weight Weight 272 lb Result Diagrams: 12/08/20 04:50 12/08/20 04:50 Additional Labs: Accuchecks 12/08/20 12/07/20 10:19 16:26 POC Glucose 253 H 286 H Radiology Reviewed by me: Yes EKG Reviewed by me: Yes Hospitalist ROS - Review of Systems Gastrointestinal: reports: nausea - Medication Medications: Active Medications Generic Name Dose Route Start Last Admin Trade Name Freq PRN Reason Stop Dose Admin Acetaminophen 650 mg 12/06/20 15:44 12/07/20 03:15 Acetaminophen 325 Mg Tab PO 650 mg Q4H PRN Administration Headache/Fever/Mild Pain (1-3) Hydrocodone Bitart/Acetaminophen 1 tab 12/06/20 15:44 12/08/20 12:15 Hydrocodone/Acetaminophen 5/325 Mg Tablet PO 1 tab Q4H PRN Administration Moderate Pain (4-6) Carvedilol 25 mg 12/06/20 17:00 12/08/20 08:45 Carvedilol 25 Mg Tab PO 25 mg BID-WM NANCIE Administration Enoxaparin Sodium 30 mg 12/07/20 09:00 12/08/20 08:45 Enoxaparin Sodium 30 Mg/0.3 Ml Syringe SC 30 mg 0900 NANCIE Administration Famotidine 20 mg 12/07/20 09:00 12/08/20 08:45 Famotidine 20 Mg Tab PO 20 mg DAILY NANCIE Administration Gabapentin 300 mg 12/06/20 21:00 12/08/20 08:44 Gabapentin 300 Mg Cap PO 300 mg TID NANCIE Administration Ceftriaxone Sodium 1 gm/ 100 mls @ 200 mls/hr 12/07/20 16:00 12/07/20 17:13 Sodium Chloride IVPB 100 mls Q24HR NANCIE Administration Insulin Human Lispro 6 units 12/08/20 12:00 12/08/20 12:16 Humalog 300 Units/3 Ml Vial SC 6 unit TID-WM PRN Administration BLOOD SUGAR>200 Isosorbide Mononitrate 30 mg 12/07/20 09:00 12/08/20 08:45 Isosorbide Mononitrate Er 30 Mg Tab PO 30 mg DAILY NANCIE Administration Sertraline HCl 100 mg 12/07/20 09:00 12/08/20 08:45 Sertraline Hcl 100 Mg Tab PO 100 mg DAILY NANCIE Administration Sevelamer Carbonate 800 mg 12/06/20 17:00 12/08/20 12:15 Sevelamer Carbonate 800 Mg Tab PO 800 mg TID-WM NANCIE Administration Hospitalist Exam Vitals: Vital Signs (12 hours) Temp Pulse Pulse Pulse Resp BP BP 12/08/20 11:25 98.2 F 57 L 16 12/08/20 10:35 55 L 58 L 138/76 142/61 H 12/08/20 07:35 98.4 F 58 L 18 12/08/20 05:12 12/08/20 04:30 97.7 F 58 L 18 BP BP Pulse Ox Pulse Ox Pulse Ox 12/08/20 11:25 138/76 100 12/08/20 10:35 98 99 12/08/20 07:35 147/66 H 99 12/08/20 05:12 129/58 L 12/08/20 04:30 185/77 H 99 Weight Weight 272 lb General Appearance: NAD, awake alert Eye: PERRL, anicteric sclera ENT: normocephalic atraumatic, no oropharyngeal lesions Neck: supple, symmetric, no JVD Heart: RRR, no murmur, no gallops Respiratory: CTAB, no wheezes Gastrointestinal: soft, non-tender, non-distended, normal bowel sounds Neurological: cranial nerve grossly intact, normal sensation to touch Psychiatric: normal affect, normal behavior, A&O x 3 Hosp A/P (1) Acute respiratory failure with hypoxia Code(s): J96.01 - ACUTE RESPIRATORY FAILURE WITH HYPOXIA Status: Acute (2) Acute on chronic diastolic heart failure due to coronary artery disease Code(s): I50.33 - ACUTE ON CHRONIC DIASTOLIC (CONGESTIVE) HEART FAILURE; I25.10 - ATHSCL HEART DISEASE OF [place] CORONARY ARTERY W/O ANG PCTRS Status: Acute (3) Hypertensive heart and chronic kidney disease with acute diastolic congestive heart failure Code(s): I13.0 - HYP HRT & CHR KDNY DIS W HRT FAIL AND STG 1-4/UNSP CHR KDNY; I50.31 - ACUTE DIASTOLIC (CONGESTIVE) HEART FAILURE Status: Acute (4) End-stage renal disease on hemodialysis Code(s): N18.6 - END STAGE RENAL DISEASE; Z99.2 - DEPENDENCE ON RENAL DIALYSIS Status: Acute (5) Hyperkalemia Code(s): E87.5 - HYPERKALEMIA Status: Acute - Plan old records reviewed/req, plan discussed w/ family, PT/OT, respiratory therapy, incentive spirometry #1. Acute respiratory failure with hypoxia. Likely secondary to below. Continue O2 supplementation and wean off as tolerated. 2. Acute on chronic heart failure exacerbation from diastolic dysfunction. She is getting diuretics and also had her dialysis. She appears to be improved. 3. Hypertensive heart and chronic kidney disease with congestive heart failure. Her blood pressure seems to be better today. She responded nicely to dialysis and resumption of her blood pressure medications. 4. End-stage renal disease on dialysis. Dialysis has been resumed. 5. Hyperkalemia. Potassium appears to be corrected since dialysis.
[2020-12-08] MEDS: cefTRIAXone\\ROCEPHIN 1 GM in Sodium Chloride 0.9% 100 ML IVPB SCH (18:51)
[2020-12-08] MEDS: Furosemide 40 MG TAB PO SCH (21:00)
[2020-12-08] MEDS ORDERED: Non-Formulary Item 1 EACH (Insulin Glargine,Hum.Rec.Anlog [Lantus Solostar] 100 UNIT/ML P SC SCH (21:00)
[2020-12-08] MEDS ORDERED: Atorvastatin Calcium 10 MG TAB PO SCH (21:00)
[2020-12-08] MEDS ORDERED: Insulin Glargine 20 UNITS in Pre-Filled Syringe 1 EACH SC SCH (21:00)
[2020-12-09] MEDS: Gabapentin 300 MG CAP PO SCH ×2 (04:32→09:10)
[2020-12-09] MEDS ORDERED: Clopidogrel Bisulfate 75 MG TAB PO SCH (09:00)
[2020-12-09] MEDS ORDERED: Isoniazid 100 MG TAB PO SCH (09:00)
[2020-12-09] MEDS: Carvedilol 25 MG TAB PO SCH (09:09)
[2020-12-09] MEDS: Furosemide 40 MG TAB PO SCH (09:09)
[2020-12-09] MEDS: HYDROcodone/Acetaminophen 5/325 mg Tablet PO PRN (09:09)
[2020-12-09] MEDS: Sevelamer Carbonate 800 MG TAB PO SCH ×2 (09:12→14:25)
[2020-12-09] MEDS: Famotidine 20 MG TAB PO SCH (09:12)
[2020-12-09] MEDS: Enoxaparin Sodium 30 MG/0.3 ML SYRINGE SC SCH (09:13)
--- NOTE | 2020-12-09 12:30 | PRG ---
DATE OF SERVICE: 12/09/2020 SUBJECTIVE: Patient was seen and examined at bedside and overnight events noted. Patient denies any shortness of breath or chest pain or palpitation. No history of nausea or vomiting or diarrhea or fever or chills or cramps. OBJECTIVE: GENERAL: This is a morbidly obese female, in no apparent distress. VITAL SIGNS: Temperature 98.0. Heart Rate 60. Respiratory rate 18. Blood pressure 167/71. HEENT: Atraumatic, normocephalic. Oral mucosa is moist. NECK: Supple. CARDIOVASCULAR: S1, S2 heard. Rate and rhythm regular. RESPIRATORY: Clear to auscultation. GASTROINTESTINAL: Abdomen is soft. MUSCULOSKELETAL: No tenderness. No edema. DERMATOLOGIC: No skin rash. NEUROLOGIC: Alert and awake and oriented x3. No focal neurologic deficits. Moving all the extremities. PSYCHIATRIC: Mood and affect normal. LABORATORY DATA: Not done today. ASSESSMENT AND PLAN: 1. End-stage renal disease. Continue dialysis today, and Saturday, Saturday, Saturday as tolerated. 2. Edema. We will remove fluid. 3. Morbid obesity. 4. Hyperkalemia. 5. Acidosis. 6. Hypoalbuminemia. Plan to continue on dialysis as tolerated. Job ID: [id number]
[2020-12-09 13:36] VITALS: BP 150/67; TEMP 98
--- NOTE | 2020-12-09 16:38 | PDOC.DS.DS ---
Provider Date of Admission: 12/06/20 15:51 Date of Discharge: 12/09/20 Admitting Provider: Blayne Nelson MD Consultations: Nephrology Primary Care Physician: OUT OF TOWN Course Hospital Course: Ms. Mata is a 75-year-old woman whose medical history includes end-stage renal disease on dialysis, she has congestive heart failure from diastolic dysfunction who was admitted to the hospital for an acute on chronic respiratory failure. This was felt to be secondary to CHF exacerbation from volume overload related to end-stage renal disease. She unfortunately had missed her dialysis due to the inclement weather that passed through the region the last few days. She was hospitalized for further stabilization. She was seen by her industrial safety and health specialist and she underwent dialysis. Shortly following her dialysis her symptoms actually did improve. She also was placed back on her routine home medications including her Lasix. She diuresed very well. An echocardiogram obtained showed a preserved ejection fraction. There were some evidence of moderate aortic stenosis. She does have diastolic d ysfunction as well. She is now back to her baseline O2 requirement. Her only complaint appears to be generalized fatigue and weakness which she says she has had before. At any rate she is felt to have reached optimal hospital benefit and she is clinically stable for discharge today. Resuscitation Status: 12/07/20 17:21 Resuscitation Status Routine Resuscitation Status: FULL: Full Resuscitation Lab Results: 12/08/20 04:50 12/08/20 04:50 Abnormal Lab Results - Last 48 hrs 12/08/20 04:50: BUN 74 H, Creatinine 6.57 H 12/08/20 04:50: B-Natriuretic Peptide 776.5 H 12/08/20 04:50: RBC 3.19 L, Hgb 10.0 L, Hct 30.7 L, MCH 31.2 H, MPV 7.1 L, Monocytes # 0.6 H Microbiology - Entire Visit 12/06/20 16:25 Venous blood - Right Arm Blood Culture - Preliminary NO GROWTH AT 48 HOURS 12/06/20 16:25 Venous blood - Right Arm Blood Culture - Preliminary NO GROWTH AT 48 HOURS Vitals: Vital Signs (12 hours) Temp Pulse Resp BP BP Pulse Ox 12/09/20 12:00 98.0 F 61 19 150/67 H 98 12/09/20 08:00 98 F 60 19 167/71 H 12/09/20 05:30 98.3 F 57 L 17 195/81 H 100 Weight Weight 272 lb Physical Exam: The patient was seen and examined on the day of discharge. General Appearance: NAD, awake alert Eye: PERRL, anicteric sclera ENT: normocephalic atraumatic, no oropharyngeal lesions Neck: supple, symmetric Respiratory: CTAB, no wheezes Gastrointestinal: soft Neurological: cranial nerve grossly intact, normal sensation to touch PSYCH: normal affect, normal behavior, A&O x 3 Problem (1) Acute respiratory failure with hypoxia Code(s): J96.01 - ACUTE RESPIRATORY FAILURE WITH HYPOXIA Status: Acute (2) Acute on chronic diastolic heart failure due to coronary artery disease Code(s): I50.33 - ACUTE ON CHRONIC DIASTOLIC (CONGESTIVE) HEART FAILURE; I25.10 - ATHSCL HEART DISEASE OF [place] CORONARY ARTERY W/O ANG PCTRS Status: Acute (3) Hypertensive heart and chronic kidney disease with acute diastolic con gestive heart failure Code(s): I13.0 - HYP HRT & CHR KDNY DIS W HRT FAIL AND STG 1-4/UNSP CHR KDNY; I50.31 - ACUTE DIASTOLIC (CONGESTIVE) HEART FAILURE Status: Acute (4) End-stage renal disease on hemodialysis Code(s): N18.6 - END STAGE RENAL DISEASE; Z99.2 - DEPENDENCE ON RENAL DIALYSIS Status: Acute (5) Hyperkalemia Code(s): E87.5 - HYPERKALEMIA Status: Acute Time Spent in discharge related activities (mins): 30 Plan Home Medications: Medication Instructions Recorded Confirmed Type Gabapentin 300 mg PO TID 12/31/13 12/07/20 History Pravastatin Sodium [Pravachol] 40 mg PO 12/31/13 12/07/20 History HYDROcodone Bit/APAP 10/325 [[place]] 1 tab PO Q8HR PRN 07/19/15 12/07/20 History Furosemide [Lasix] 40 mg PO BID 07/21/15 12/07/20 History Clopidogrel Bisulfate [Clopidogrel] 75 mg PO DAILY 12/07/20 12/07/20 History HumaLOG [HumaLOG Vial] 6 unit SC TID-WM 12/07/20 12/07/20 History Insulin Glargine,Hum.Rec.Anlog 20 unit SC 12/07/20 12/07/20 History [Lantus Solostar] Isoniazid 300 mg PO DAILY 12/07/20 12/07/20 History Isosorbide Mononitrate [Isosorbide 0.5 tab PO DAILY 12/07/20 12/07/20 History Mononitrate ER] Rifampin [Rifadin] 2 cap PO DAILY 12/07/20 12/07/20 History Sertraline HCl [Zoloft] 100 mg PO HS 12/07/20 12/07/20 History Sevelamer Carbonate [Renvela] 2 tab PO TID-WM 12/07/20 12/07/20 History Gabapentin [Neurontin] 300 mg PO TID cap 12/09/20 Rx Isosorbide Mononitrate [Imdur ER] 30 mg PO DAILY tab 12/09/20 Rx Sertraline HCl [Zoloft] 100 mg PO DAILY tab 12/09/20 Rx Sevelamer Carbonate [Renvela] 800 mg PO TID-WM tab 12/09/20 Rx Allergies: ibuprofen Allergy (Mild, Verified 01/10/20 17:05) Nausea adhesive tape Allergy (Verified 01/10/20 17:05) ciprofloxacin Allergy (Verified 01/10/20 17:05) ciprofloxacin HCl [From Cipro] Allergy (Verified 01/10/20 17:05) Activity:: Activity as Tolerated Nourishment:: Renal Diet Therapies:: Occupational Therapy, Physical Therapy Referrals: [facility]OUT [facility] [Primary Care Provider] - 7 Days Disposition: HOME HEALTH Quality CORE MEASURES:: N/A
--- NOTE | 2020-12-10 14:43 | EKG ---
Test Reason : Blood Pressure : / mmHG Vent. Rate : 082 BPM Atrial Rate : 082 BPM P-R Int : 186 ms QRS Dur : 094 ms QT Int : 372 ms P-R-T Axes : 037 072 043 degrees QTc Int : 434 ms Sinus rhythm with Premature supraventricular complexes Otherwise normal ECG Confirmed by OSVALDO NOVOA, ANIBAL Thapa ([id number]), medical transcription editor ARNEL NOEL ([id number]) on 12/10/2020 2:43:06 PM Referred By: Confirmed By:ANIBAL RILEY MD
== END 2020-12-09 18:36 | disposition home health service (06) | DRG 291 ==
LOC: ERS 13:34 → ERHOLD 15:51 → 2SW 12-07 12:06
PROVIDERS: ADMIT Internal Medicine Nephrology; ATTEND Hospitalist
PROC: 5A1D70Z Performance of Urinary Filtration, Intermittent, Less than 6 Hours Per Day (ICD-10-PCS; principal; 2020-12-07)
DX: I13.2 Hypertensive heart and chronic kidney disease with heart failure and with stage 5 chronic kidney disease, or end stage renal disease (principal); N18.6 End stage renal disease; I50.33 Acute on chronic diastolic (congestive) heart failure; J96.01 Acute respiratory failure with hypoxia; I16.1 Hypertensive emergency; E87.2 Acidosis; Z68.42 Body mass index [BMI] 45.0-49.9, adult; E66.01 Morbid (severe) obesity due to excess calories; Z20.822 Contact with and (suspected) exposure to COVID-19; E87.5 Hyperkalemia; E11.22 Type 2 diabetes mellitus with diabetic chronic kidney disease; Z99.2 Dependence on renal dialysis
CPT/HCPCS: 0240U; 36415; 36416; 71045; 80048; 80053; 82550; 83735; 83880; 84443; 84484; 85025; 87040; 87340; 87449; 87899; 90935; 93005; 93306; 96365; 96367; 96375; G0257; J0360; J0456; J0696; J1650; J1815; J1940; J3490

== ENCOUNTER 2022-01-24 04:59 | Observation (INO) | payer MEDICARE, OTHER ==
[2022-01-24 06:11] LABS: #Eosinphils 0.2 thou/uL (0.0-0.7); #Lymphocytes 1.8 thou/uL (1.20-3.40); #Monocytes 0.7 thou/uL (0.11-0.59); %Basophils 0.3 % (0.0-1.0); %Eosinophils 1.9 % (0.0-10.0); %Monocytes 6.7 % (0.0-10.0); %Neutrophils 74.2 % (42.0-75.0); Hemoglobin 12.7 g/dL (12.0-16.0); Mean Corpuscular HGB CONC 31.3 g/dL (32.0-36.0); Mean Corpuscular Hemoglobin 31.6 pg (27.0-31.0); Platelet Count 178 thou/uL (130-400); RBC Distribution Width 13.4 % (11.5-14.5); White Blood Cell (WBC) Count 10.7 thou/uL (4.8-10.8)
[2022-01-24] MEDS ORDERED: Acetaminophen 500 MG TAB ONE (06:27)
[2022-01-24 06:34] LABS: ALT (SGPT) 15 U/L (8-55); AST (SGOT) 16 U/L (5-34); Albumin 3.9 g/dL (3.4-4.8); Alkaline Phosphatase 138 U/L (40-110); Anion Gap 19 mmol/L (10-20); BUN (Urea Nitrogen) 68 mg/dL (9.8-20.1); Bilirubin, Total 0.9 mg/dL (0.2-1.2); Calc. Creatinine Clearance 0 mL/min (70-130); Calcium 9.1 mg/dL (7.8-10.44); Carbon Dioxide 26 mmol/L (23-31); Chloride 95 mmol/L (98-107); Globulin 3.8 g/dL (2.4-3.5); Glucose 175 mg/dL (83-110); Potassium 4.9 mmol/L (3.5-5.1); Protein, Total 7.7 g/dL (5.8-8.1); Sodium 135 mmol/L (136-145)
[2022-01-24] MEDS ORDERED: Acetaminophen 325 MG TAB PO PRN (08:38)
[2022-01-24] MEDS ORDERED: Acetaminophen 650 MG Suppository PR PRN (08:38)
[2022-01-24] MEDS ORDERED: HumaLOG 300 UNITS/3 ML VIAL SC PRN ×2 (08:58)
[2022-01-24] MEDS ORDERED: Dextrose 5% in Water 1,000 ML IV PRN (08:58)
[2022-01-24] MEDS ORDERED: Dextrose 50% Abboject 50 ML SYRINGE SLOW IVP PRN (08:58)
[2022-01-24] MEDS ORDERED: Sodium Chloride 0.9% 500 ML IV SCH (09:15)
[2022-01-24 09:16] LABS: Magnesium 2.2 mg/dL (1.6-2.6)
[2022-01-24 09:21] LABS: Troponin I 0.015 ng/mL (< 0.028)
[2022-01-24 13:58] VITALS: BMI 50.1
[2022-01-24 14:30] LABS: SARS-CoV-2 PCR by NAA Not Detected (NotDetected)
[2022-01-24 18:34] LABS: HBSAg Index 0.23 S/CO (0-0.99); Hep B Surf Ag Non-Reactive S/CO (NonReactive)
[2022-01-25 04:11] LABS: #Eosinphils 0.2 thou/uL (0.0-0.7); #Monocytes 0.6 thou/uL (0.11-0.59); #Neutrophils 5.4 thou/uL (1.40-6.50); %Basophils 0.3 % (0.0-1.0); %Eosinophils 2.5 % (0.0-10.0); %Lymphocytes 23.9 % (21.0-51.0); %Monocytes 7.6 % (0.0-10.0); %Neutrophils 65.7 % (42.0-75.0); Mean Corpuscular HGB CONC 31.4 g/dL (32.0-36.0); Mean Corpuscular Hemoglobin 32.2 pg (27.0-31.0); Platelet Count 148 thou/uL (130-400); RBC Distribution Width 13.2 % (11.5-14.5); Red Blood Cell (RBC) Count 3.72 mill/uL (4.20-5.40); White Blood Cell (WBC) Count 8.3 thou/uL (4.8-10.8)
[2022-01-25 04:31] LABS: Anion Gap 13 mmol/L (10-20); BUN (Urea Nitrogen) 31 mg/dL (9.8-20.1); Calc. Creatinine Clearance 19 mL/min (70-130); Calcium 8.4 mg/dL (7.8-10.44); Carbon Dioxide 29 mmol/L (23-31); Chloride 96 mmol/L (98-107); Glucose 125 mg/dL (83-110); Potassium 4.1 mmol/L (3.5-5.1); Sodium 134 mmol/L (136-145)
[2022-01-25] MEDS ORDERED: Clopidogrel Bisulfate 75 MG TAB PO SCH (09:00)
[2022-01-25] MEDS: Sevelamer Carbonate 800 MG TAB PO SCH ×3 (10:56→17:13)
[2022-01-25 12:03] VITALS: TEMP 97.9
[2022-01-25 17:11] VITALS: BP 172/72
[2022-01-25] MEDS ORDERED: Atorvastatin Calcium 10 MG TAB PO SCH (21:00)
[2022-01-25] MEDS ORDERED: Pravastatin Sodium 40 MG TAB PO SCH (21:00)
== END 2022-01-25 18:30 | disposition home or self-care (01) ==
LOC: ERS 04:59 → ERHOLD 06:50 → 2NO 13:29
PROVIDERS: ADMIT Internal Medicine; ATTEND Internal Medicine
DX: R55 Syncope and collapse (principal); R42 Dizziness and giddiness; I35.0 Nonrheumatic aortic (valve) stenosis; I13.2 Hypertensive heart and chronic kidney disease with heart failure and with stage 5 chronic kidney disease, or end stage renal disease; E11.22 Type 2 diabetes mellitus with diabetic chronic kidney disease; N18.6 End stage renal disease; I50.30 Unspecified diastolic (congestive) heart failure; D63.1 Anemia in chronic kidney disease; Z20.822 Contact with and (suspected) exposure to COVID-19; E78.5 Hyperlipidemia, unspecified; Z79.02 Long term (current) use of antithrombotics/antiplatelets; Z79.4 Long term (current) use of insulin; Z79.899 Other long term (current) drug therapy; Z88.1 Allergy status to other antibiotic agents; Z88.8 Allergy status to other drugs, medicaments and biological substances; Z91.048 Other nonmedicinal substance allergy status; Z99.2 Dependence on renal dialysis
CPT/HCPCS: 70450; 71045; 80048; 80053; 82962 ×2; 83735; 84484 ×2; 85025 ×2; 87340; 93005; 93306; 97116; 97139; 99285; G0378 ×3; U0003; U0005; 36415; 36416; 90935; G0257

== ENCOUNTER 2022-04-01 23:27 | Emergency (ER) | payer OTHER ==
[2022-04-02 01:34] LABS: #Eosinphils 0.1 thou/uL (0.0-0.7); #Lymphocytes 2.3 thou/uL (1.20-3.40); #Monocytes 0.7 thou/uL (0.11-0.59); #Neutrophils 10.9 thou/uL (1.40-6.50); %Basophils 0.2 % (0.0-1.0); %Eosinophils 0.9 % (0.0-10.0); %Lymphocytes 16.2 % (21.0-51.0); %Monocytes 4.7 % (0.0-10.0); %Neutrophils 78.1 % (42.0-75.0); Hemoglobin 11.9 g/dL (12.0-16.0); Mean Corpuscular HGB CONC 32.7 g/dL (32.0-36.0); Mean Corpuscular Hemoglobin 32.9 pg (27.0-31.0); Platelet Count 175 thou/uL (130-400); RBC Distribution Width 12.6 % (11.5-14.5); Red Blood Cell (RBC) Count 3.61 mill/uL (4.20-5.40)
[2022-04-02 01:39] LABS: Albumin 3.4 g/dL (3.4-4.8)
[2022-04-02 01:40] LABS: Chloride 100 mmol/L (98-107); Potassium 4.5 mmol/L (3.5-5.1); Sodium 136 mmol/L (136-145)
[2022-04-02 01:42] LABS: Globulin 3.5 g/dL (2.4-3.5); Glucose 248 mg/dL (83-110); Protein, Total 6.9 g/dL (5.8-8.1)
[2022-04-02 01:43] LABS: Anion Gap 21 mmol/L (10-20); Bilirubin, Total 0.7 mg/dL (0.2-1.2); Carbon Dioxide 20 mmol/L (23-31)
[2022-04-02 01:44] LABS: Alkaline Phosphatase 189 U/L (40-110)
[2022-04-02 01:45] LABS: Calc. Creatinine Clearance 0 mL/min (70-130)
[2022-04-02 01:46] LABS: BUN (Urea Nitrogen) 63 mg/dL (9.8-20.1)
[2022-04-02 01:47] LABS: AST (SGOT) 12 U/L (5-34)
[2022-04-02 01:48] LABS: ALT (SGPT) 12 U/L (8-55)
== END 2022-04-02 02:10 | disposition home or self-care (01) ==
LOC: ERS 23:27
DX: R06.02 Shortness of breath (principal); I13.2 Hypertensive heart and chronic kidney disease with heart failure and with stage 5 chronic kidney disease, or end stage renal disease; E11.22 Type 2 diabetes mellitus with diabetic chronic kidney disease; N18.6 End stage renal disease; I50.9 Heart failure, unspecified; Z99.2 Dependence on renal dialysis; E78.5 Hyperlipidemia, unspecified; E78.00 Pure hypercholesterolemia, unspecified; E66.9 Obesity, unspecified; Z68.45 Body mass index [BMI] 70 or greater, adult; Z87.442 Personal history of urinary calculi; Z79.899 Other long term (current) drug therapy
CPT/HCPCS: 71045; 80053; 85025

== ENCOUNTER 2022-12-11 08:40 | Inpatient (IN) | payer OTHER ==
[2022-12-11] MEDS ORDERED: HYDROcodone/Acetaminophen 5/325 mg Tablet ONE (11:01)
[2022-12-11 11:21] LABS: #Eosinphils 0.1 thou/uL (0.0-0.7); #Lymphocytes 1.7 thou/uL (1.20-3.40); #Neutrophils 8.4 thou/uL (1.40-6.50); %Basophils 0.1 % (0.0-1.0); %Eosinophils 0.5 % (0.0-10.0); %Lymphocytes 15.4 % (21.0-51.0); %Monocytes 8.5 % (0.0-10.0); %Neutrophils 75.5 % (42.0-75.0); Hemoglobin 10.7 g/dL (12.0-16.0); Mean Corpuscular HGB CONC 33.2 g/dL (32.0-36.0); Mean Corpuscular Hemoglobin 32.4 pg (27.0-31.0); Mean Corpuscular Volume 97.6 fl (78.0-98.0); Mean Platelet Volume 8.4 fL (7.4-10.4); Platelet Count 131 10x3/uL (130-400); RBC Distribution Width 13.4 % (11.5-14.5); White Blood Cell (WBC) Count 11.2 10x3/uL (4.8-10.8)
[2022-12-11 11:40] LABS: ALT (SGPT) 12 U/L (8-55); AST (SGOT) 15 U/L (5-34); Albumin 3.4 g/dL (3.4-4.8); Alkaline Phosphatase 142 U/L (40-110); Anion Gap 20 mmol/L (10-20); BUN (Urea Nitrogen) 82 mg/dL (9.8-20.1); Bilirubin, Total 1.1 mg/dL (0.2-1.2); Calc. Creatinine Clearance 0 mL/min (70-130); Calcium 8.2 mg/dL (7.8-10.44); Carbon Dioxide 22 mmol/L (23-31); Chloride 95 mmol/L (98-107); Estimated GFR 4; Globulin 2.8 g/dL (2.4-3.5); Glucose 176 mg/dL (83-110); Potassium 4.8 mmol/L (3.5-5.1); Protein, Total 6.2 g/dL (5.8-8.1); Sodium 132 mmol/L (136-145)
[2022-12-11] MEDS ORDERED: TETANUS, DIPHTHERIA TOX,ADULT (TDVAX) 0.5 ML VIAL IM ONE (12:08)
[2022-12-11] MEDS ORDERED: Ondansetron ODT 4 MG TAB PO PRN (12:08)
[2022-12-11] MEDS ORDERED: Insulin Regular 300 UNITS/3 ML VIAL SC PRN (12:08)
[2022-12-11] MEDS ORDERED: traMADol HCl 50 MG TAB PO PRN ×2 (12:08→12:19)
[2022-12-11] MEDS ORDERED: hydrALAZINE 20 MG/ML VIAL SLOW IVP PRN (12:08)
[2022-12-11] MEDS ORDERED: Dextrose 50% Abboject 50 ML SYRINGE SLOW IVP PRN (12:08)
[2022-12-11] MEDS ORDERED: Ipratropium/Albuterol 3 ML NEB NEB PRN (12:08)
[2022-12-11] MEDS ORDERED: Ondansetron PF 4 MG/2 ML Vial IVP PRN (12:08)
[2022-12-11] MEDS ORDERED: Dextrose 5% in Water 1,000 ML IV PRN (12:08)
[2022-12-11] MEDS ORDERED: traMADol HCl 50 MG TAB PO SCH ×2 (12:30→21:00)
[2022-12-11] MEDS ORDERED: Acetaminophen 500 MG TAB PO SCH ×2 (12:30→18:00)
[2022-12-11] MEDS ORDERED: CEFAZOLIN 2 GM in Sodium Chloride 0.9% 100 ML IVPB SCH (14:15)
[2022-12-11] MEDS ORDERED: Insulin Regular 300 UNITS/3 ML VIAL ONE (14:50)
[2022-12-11] MEDS ORDERED: Boostrix 0.5 ML (Tdap) VIAL (>/=7 yrs of age) ONE (14:51)
[2022-12-11] MEDS: Insulin Regular 300 UNITS/3 ML VIAL SC PRN (14:57)
[2022-12-11 15:09] LABS: HBSAg Index 0.28 S/CO (0-0.99); Hep B Core Total Ab Non-Reactive (NonReactive); Hep B Core Total Index 0.12 S/CO (0-0.79); Hep B Surf Ag Non-Reactive S/CO (NonReactive); Hep C IgG Ab Non-Reactive (NonReactive); Hep C Index 0.16 S/CO (0-0.79)
[2022-12-11 15:22] LABS: SARS-CoV-2 NAA Rapid Test Not Detected (NotDetected)
[2022-12-11 15:48] LABS: Hep B Surf AB Reactive (NonReactive)
[2022-12-11] MEDS: HYDROcodone/Acetaminophen 5/325 mg Tablet PO PRN ×2 (17:10→23:34)
[2022-12-11] MEDS: Acetaminophen 325 MG TAB PO SCH (18:00)
[2022-12-11] MEDS ORDERED: Famotidine 20 MG TAB PO SCH (21:00)
[2022-12-11] MEDS: Morphine 4 MG/ML VIAL SLOW IVP PRN (22:05)
[2022-12-11] MEDS: Cyclobenzaprine 10 MG TAB PO PRN (22:05)
[2022-12-11] MEDS: Senokot S 8.6-50 MG TAB PO SCH (22:05)
[2022-12-12] MEDS: Acetaminophen 325 MG TAB PO SCH ×4 (00:23→16:22)
[2022-12-12 05:23] VITALS: BMI 48.9
[2022-12-12] MEDS: Cyclobenzaprine 10 MG TAB PO PRN ×2 (06:10→21:41)
[2022-12-12] MEDS: Morphine 2 MG/ML VIAL SLOW IVP PRN (06:10)
[2022-12-12] MEDS: HYDROcodone/Acetaminophen 5/325 mg Tablet PO PRN ×2 (06:53→16:22)
[2022-12-12 07:12] LABS: #Eosinphils 0.1 thou/uL (0.0-0.7); #Lymphocytes 1.3 thou/uL (1.20-3.40); #Monocytes 0.9 thou/uL (0.11-0.59); #Neutrophils 8.6 thou/uL (1.40-6.50); %Basophils 0.2 % (0.0-1.0); %Eosinophils 0.7 % (0.0-10.0); %Lymphocytes 11.9 % (21.0-51.0); %Monocytes 8.3 % (0.0-10.0); Hemoglobin 9.9 g/dL (12.0-16.0); Mean Corpuscular HGB CONC 32.3 g/dL (32.0-36.0); Mean Corpuscular Hemoglobin 32.1 pg (27.0-31.0); Mean Corpuscular Volume 99.3 fl (78.0-98.0); Mean Platelet Volume 7.9 fL (7.4-10.4); Platelet Count 140 10x3/uL (130-400); RBC Distribution Width 13.2 % (11.5-14.5); Red Blood Cell (RBC) Count 3.07 mill/uL (4.20-5.40); White Blood Cell (WBC) Count 10.9 10x3/uL (4.8-10.8)
[2022-12-12 07:29] LABS: Phosphorus 4.5 mg/dL (2.3-4.7)
[2022-12-12 07:33] LABS: Anion Gap 16 mmol/L (10-20); BUN (Urea Nitrogen) 41 mg/dL (9.8-20.1); Calc. Creatinine Clearance 17 mL/min (70-130); Calcium 8.6 mg/dL (7.8-10.44); Carbon Dioxide 28 mmol/L (23-31); Chloride 94 mmol/L (98-107); Estimated GFR 8; Glucose 171 mg/dL (83-110); Magnesium 1.9 mg/dL (1.6-2.6); Potassium 3.8 mmol/L (3.5-5.1); Sodium 134 mmol/L (136-145)
[2022-12-12] MEDS: Polyethylene Glycol 3350 17 GM Packet PO SCH (11:43)
[2022-12-12] MEDS: Senokot S 8.6-50 MG TAB PO SCH ×2 (11:43→19:36)
[2022-12-12] MEDS ORDERED: Ropivacaine 0.5% HCl/PF (150 MG/30 ML VIAL) ONE (12:11)
[2022-12-12] MEDS ORDERED: Fentanyl 100 MCG/2 ML VIAL ONE (12:11)
[2022-12-12] MEDS ORDERED: fentaNYL PF 100 MCG/2 ML SYRINGE ONE (12:31)
[2022-12-12] MEDS: Carvedilol 3.125 MG TAB PO SCH (16:23)
[2022-12-12] MEDS: Gabapentin 300 MG CAP PO SCH (19:36)
[2022-12-12] MEDS: Rosuvastatin 10 MG TAB PO SCH (19:36)
[2022-12-12] MEDS: Morphine 4 MG/ML VIAL SLOW IVP PRN (21:41)
[2022-12-13] MEDS: Acetaminophen 325 MG TAB PO SCH ×5 (00:59→23:36)
[2022-12-13] MEDS: Morphine 4 MG/ML VIAL SLOW IVP PRN (04:40)
[2022-12-13 05:57] LABS: #Eosinphils 0.1 thou/uL (0.0-0.7); #Lymphocytes 1.2 thou/uL (1.20-3.40); #Monocytes 0.9 thou/uL (0.11-0.59); %Basophils 0.1 % (0.0-1.0); %Eosinophils 1.2 % (0.0-10.0); %Lymphocytes 11.8 % (21.0-51.0); %Monocytes 8.4 % (0.0-10.0); %Neutrophils 78.5 % (42.0-75.0); Hemoglobin 9.9 g/dL (12.0-16.0); Mean Corpuscular HGB CONC 32.6 g/dL (32.0-36.0); Mean Corpuscular Hemoglobin 32.3 pg (27.0-31.0); Mean Corpuscular Volume 99.2 fl (78.0-98.0); Mean Platelet Volume 8.2 fL (7.4-10.4); Platelet Count 136 10x3/uL (130-400); RBC Distribution Width 13.3 % (11.5-14.5); Red Blood Cell (RBC) Count 3.06 mill/uL (4.20-5.40); White Blood Cell (WBC) Count 10.2 10x3/uL (4.8-10.8)
[2022-12-13 06:14] LABS: Bacteria/HPF None Seen HPF (None Seen); Bilirubin 1+ (Negative); Blood, Urine 2+ (Negative); CAUTI Indications for Culture Alt mental st,lethar; Clarity Clear (Clear); Glucose, Urine (Dipstick) Normal (Negative); Ketone, Urine Negative (Negative); Leukocyte 500 Leu/uL (Negative); Nitrite Negative (Negative); Protein, Urine (Dipstick) 50 mg/dL (Neg-Trace); Specific Gravity, Urine 1.017 (1.002-1.036); Squamous Epithelial 0-3 HPF (0-3); Urobilinogen Normal mg/dL (Less than 2); pH, Urine 5.5 (5.0-9.0)
[2022-12-13 06:17] LABS: Urine Culture Reflex Yes Yes
[2022-12-13 06:17] LABS: Anion Gap 18 mmol/L (10-20); BUN (Urea Nitrogen) 56 mg/dL (9.8-20.1); Calc. Creatinine Clearance 13 mL/min (70-130); Calcium 8.3 mg/dL (7.8-10.44); Carbon Dioxide 26 mmol/L (23-31); Chloride 94 mmol/L (98-107); Estimated GFR 6; Glucose 151 mg/dL (83-110); Phosphorus 6.2 mg/dL (2.3-4.7); Potassium 4.3 mmol/L (3.5-5.1); Sodium 134 mmol/L (136-145)
[2022-12-13] MEDS: Budesonide 0.5 MG/2 ML NEB NEB SCH ×2 (06:38→21:31)
[2022-12-13] MEDS: Arformoterol 15 MCG/2 ML NEB NEB SCH ×2 (06:42→21:31)
[2022-12-13] MEDS: Sevelamer Carbonate 800 MG TAB PO SCH ×3 (08:04→19:26)
[2022-12-13] MEDS: Polyethylene Glycol 3350 17 GM Packet PO SCH (08:21)
[2022-12-13] MEDS: Gabapentin 300 MG CAP PO SCH ×3 (08:25→21:23)
[2022-12-13] MEDS: Carvedilol 3.125 MG TAB PO SCH ×2 (08:25→17:22)
[2022-12-13] MEDS: Senokot S 8.6-50 MG TAB PO SCH ×2 (08:26→21:24)
[2022-12-13] MEDS: Loratadine 10 MG TAB PO SCH (08:26)
[2022-12-13] MEDS: Sertraline 100 MG TAB PO SCH (08:26)
[2022-12-13] MEDS ORDERED: cefTRIAXone\\ROCEPHIN 1 GM in Sodium Chloride 0.9% 100 ML IVPB SCH (08:45)
[2022-12-13] MEDS ORDERED: Activase 2 MG VIAL CATH SCH (10:15)
[2022-12-13] MEDS: HYDROcodone/Acetaminophen 5/325 mg Tablet PO PRN (17:22)
[2022-12-13] MEDS: Rosuvastatin 10 MG TAB PO SCH (21:25)
[2022-12-13] MEDS: cefTRIAXone\\ROCEPHIN 1 GM in Sodium Chloride 0.9% 100 ML IVPB SCH (22:09)
[2022-12-14 05:40] LABS: #Eosinphils 0.1 thou/uL (0.0-0.7); #Lymphocytes 1.1 thou/uL (1.20-3.40); #Monocytes 0.7 thou/uL (0.11-0.59); #Neutrophils 7.9 thou/uL (1.40-6.50); %Eosinophils 1.1 % (0.0-10.0); %Lymphocytes 10.7 % (21.0-51.0); %Monocytes 7.1 % (0.0-10.0); %Neutrophils 81.1 % (42.0-75.0); Hemoglobin 9.9 g/dL (12.0-16.0); Mean Corpuscular HGB CONC 32.2 g/dL (32.0-36.0); Mean Corpuscular Volume 99.5 fl (78.0-98.0); Platelet Count 169 10x3/uL (130-400); White Blood Cell (WBC) Count 9.8 10x3/uL (4.8-10.8)
[2022-12-14 05:51] LABS: INR-International Normal Ratio 1.1; PTT 27.1 sec (22.9-36.1); Prothrombin Time 14.8 sec (12.0-14.7)
[2022-12-14] MEDS: Acetaminophen 325 MG TAB PO SCH ×4 (06:14→23:58)
[2022-12-14] MEDS: Morphine 2 MG/ML VIAL SLOW IVP PRN (06:16)
[2022-12-14 06:20] LABS: Anion Gap 16 mmol/L (10-20); BUN (Urea Nitrogen) 33 mg/dL (9.8-20.1); Calc. Creatinine Clearance 19 mL/min (70-130); Calcium 8.4 mg/dL (7.8-10.44); Carbon Dioxide 25 mmol/L (23-31); Chloride 98 mmol/L (98-107); Estimated GFR 9; Glucose 158 mg/dL (83-110); Phosphorus 3.9 mg/dL (2.3-4.7); Potassium 4.2 mmol/L (3.5-5.1); Sodium 135 mmol/L (136-145)
[2022-12-14] MEDS: Budesonide 0.5 MG/2 ML NEB NEB SCH ×2 (07:01→18:28)
[2022-12-14] MEDS: Arformoterol 15 MCG/2 ML NEB NEB SCH ×2 (07:04→18:28)
[2022-12-14] MEDS: Sevelamer Carbonate 800 MG TAB PO SCH ×3 (08:12→17:00)
[2022-12-14] MEDS ORDERED: Ropivacaine 0.5% HCl/PF (150 MG/30 ML VIAL) ONE (08:53)
[2022-12-14] MEDS ORDERED: Fentanyl 100 MCG/2 ML VIAL ONE (08:53)
[2022-12-14] MEDS ORDERED: fentaNYL PF 100 MCG/2 ML SYRINGE ONE (09:13)
[2022-12-14] MEDS ORDERED: Dexmedetomidine 200 MCG/2 ML VIAL ONE (09:13)
[2022-12-14] MEDS ORDERED: Bupivacaine PF 0.5% 30 ML VIAL ONE (09:16)
[2022-12-14] MEDS ORDERED: Rocuronium Bromide 10 MG/ML (10ML VIAL) ONE (09:49)
[2022-12-14] MEDS ORDERED: NEOSTIGMINE 3 MG/3 ML SYR 3 MG/3 ML SYRINGE ONE (09:49)
[2022-12-14] MEDS ORDERED: ePHEDrine 50 MG/ML VIAL ONE (09:49)
[2022-12-14] MEDS ORDERED: Dexamethasone 20 MG/5 ML VIAL ONE (09:49)
[2022-12-14] MEDS ORDERED: Glycopyrrolate 0.2 MG/ML 5 ML SYRINGE ONE (09:49)
[2022-12-14] MEDS ORDERED: PROPOFOL 200 MG/20 ML VIAL ONE (09:49)
[2022-12-14] MEDS ORDERED: Ondansetron PF 4 MG/2 ML Vial ONE (09:49)
[2022-12-14] MEDS ORDERED: Heparin 10,000 UNITS/ 10 ML VIAL ONE (10:12)
[2022-12-14] MEDS ORDERED: Promethazine HCl 25 MG/ML VIAL IM PRN (11:05)
[2022-12-14] MEDS ORDERED: Ondansetron HCl/PF 4 MG/2 ML Vial IVP PRN (11:05)
[2022-12-14] MEDS: Gabapentin 300 MG CAP PO SCH ×3 (11:27→20:41)
[2022-12-14] MEDS: Senokot S 8.6-50 MG TAB PO SCH ×2 (11:28→20:40)
[2022-12-14] MEDS: Loratadine 10 MG TAB PO SCH (11:28)
[2022-12-14] MEDS: Polyethylene Glycol 3350 17 GM Packet PO SCH (11:28)
[2022-12-14] MEDS: Sertraline 100 MG TAB PO SCH (11:28)
[2022-12-14] MEDS ORDERED: CEFAZOLIN 2 GM in Sodium Chloride 0.9% 100 ML IVPB SCH (14:00)
[2022-12-14] MEDS: Carvedilol 3.125 MG TAB PO SCH ×2 (14:26→17:00)
[2022-12-14] MEDS: cefTRIAXone\\ROCEPHIN 1 GM in Sodium Chloride 0.9% 100 ML IVPB SCH (17:00)
[2022-12-14] MEDS: CEFAZOLIN 2 GM in Sodium Chloride 0.9% 100 ML IVPB SCH (18:23)
[2022-12-14] MEDS: Rosuvastatin 10 MG TAB PO SCH (20:41)
[2022-12-15] MEDS: CEFAZOLIN 2 GM in Sodium Chloride 0.9% 100 ML IVPB SCH (02:11)
[2022-12-15] MEDS: Acetaminophen 325 MG TAB PO SCH ×4 (05:27→23:46)
[2022-12-15 06:16] LABS: #Eosinphils 0.1 thou/uL (0.0-0.7); #Monocytes 0.9 thou/uL (0.11-0.59); #Neutrophils 8.9 thou/uL (1.40-6.50); %Eosinophils 0.5 % (0.0-10.0); %Lymphocytes 9.5 % (21.0-51.0); %Monocytes 7.9 % (0.0-10.0); Hemoglobin 10.1 g/dL (12.0-16.0); Mean Corpuscular HGB CONC 31.8 g/dL (32.0-36.0); Mean Corpuscular Hemoglobin 32.3 pg (27.0-31.0); Mean Platelet Volume 7.5 fL (7.4-10.4); Platelet Count 203 10x3/uL (130-400); RBC Distribution Width 13.1 % (11.5-14.5); Red Blood Cell (RBC) Count 3.15 mill/uL (4.20-5.40); White Blood Cell (WBC) Count 10.8 10x3/uL (4.8-10.8)
[2022-12-15] MEDS: Insulin Regular 300 UNITS/3 ML VIAL SC PRN ×3 (06:24→17:51)
[2022-12-15 06:34] LABS: Anion Gap 16 mmol/L (10-20); BUN (Urea Nitrogen) 29 mg/dL (9.8-20.1); Calc. Creatinine Clearance 21 mL/min (70-130); Calcium 8.5 mg/dL (7.8-10.44); Carbon Dioxide 26 mmol/L (23-31); Chloride 97 mmol/L (98-107); Estimated GFR 10; Glucose 191 mg/dL (83-110); Magnesium 1.9 mg/dL (1.6-2.6); Phosphorus 4.3 mg/dL (2.3-4.7); Sodium 135 mmol/L (136-145)
[2022-12-15] MEDS: Arformoterol 15 MCG/2 ML NEB NEB SCH ×2 (06:38→19:07)
[2022-12-15] MEDS: Budesonide 0.5 MG/2 ML NEB NEB SCH ×2 (06:42→19:07)
[2022-12-15] MEDS: Gabapentin 300 MG CAP PO SCH ×3 (08:44→21:21)
[2022-12-15] MEDS: Sevelamer Carbonate 800 MG TAB PO SCH ×3 (08:44→17:40)
[2022-12-15] MEDS: Loratadine 10 MG TAB PO SCH (08:46)
[2022-12-15] MEDS: Sertraline 100 MG TAB PO SCH (08:46)
[2022-12-15] MEDS: Senokot S 8.6-50 MG TAB PO SCH ×2 (08:46→21:22)
[2022-12-15] MEDS: Carvedilol 3.125 MG TAB PO SCH ×2 (08:46→17:48)
[2022-12-15] MEDS: Polyethylene Glycol 3350 17 GM Packet PO SCH (08:47)
[2022-12-15] MEDS ORDERED: FLU VACC QS2022-23(65YR UP)/PF 240 MCG/0.7 ML SYRINGE IM ONE (09:00)
[2022-12-15] MEDS ORDERED: Heparin 5,000 UNITS/ML VIAL SC SCH (09:00)
[2022-12-15] MEDS ORDERED: Ipratropium/Albuterol 3 ML NEB NEB PRN (13:54)
[2022-12-15] MEDS: Rosuvastatin 10 MG TAB PO SCH (21:21)
[2022-12-15] MEDS: Insulin Glargine 30 UNITS/0.3 ML VIAL SC SCH (21:22)
[2022-12-16] MEDS: Acetaminophen 325 MG TAB PO SCH ×3 (05:30→17:44)
[2022-12-16 07:26] LABS: #Eosinphils 0.2 thou/uL (0.0-0.7); #Lymphocytes 1.6 thou/uL (1.20-3.40); #Monocytes 0.8 thou/uL (0.11-0.59); #Neutrophils 7.2 thou/uL (1.40-6.50); %Basophils 0.1 % (0.0-1.0); %Eosinophils 1.7 % (0.0-10.0); %Monocytes 8.3 % (0.0-10.0); %Neutrophils 73.9 % (42.0-75.0); Hemoglobin 10.2 g/dL (12.0-16.0); Mean Corpuscular HGB CONC 31.2 g/dL (32.0-36.0); Mean Corpuscular Hemoglobin 31.9 pg (27.0-31.0); Mean Platelet Volume 7.7 fL (7.4-10.4); Platelet Count 193 10x3/uL (130-400); RBC Distribution Width 13.4 % (11.5-14.5); White Blood Cell (WBC) Count 9.8 10x3/uL (4.8-10.8)
[2022-12-16] MEDS: Arformoterol 15 MCG/2 ML NEB NEB SCH ×2 (07:30→18:58)
[2022-12-16] MEDS: Budesonide 0.5 MG/2 ML NEB NEB SCH ×2 (07:33→18:59)
[2022-12-16] MEDS: Furosemide 40 MG TAB PO SCH ×2 (09:32→20:16)
[2022-12-16] MEDS: Aspirin Chewable 81 MG TAB PO SCH (09:32)
[2022-12-16] MEDS: Sevelamer Carbonate 800 MG TAB PO SCH ×3 (09:32→17:43)
[2022-12-16] MEDS: Gabapentin 300 MG CAP PO SCH ×3 (09:32→20:16)
[2022-12-16] MEDS: Sertraline 100 MG TAB PO SCH (09:32)
[2022-12-16] MEDS: Loratadine 10 MG TAB PO SCH (09:32)
[2022-12-16] MEDS: Clopidogrel Bisulfate 75 MG TAB PO SCH (09:33)
[2022-12-16] MEDS: Carvedilol 3.125 MG TAB PO SCH ×2 (09:33→17:44)
[2022-12-16] MEDS: HYDROcodone/Acetaminophen 10/325 mg Tablet PO PRN ×2 (10:55→20:13)
[2022-12-16] MEDS: Senokot S 8.6-50 MG TAB PO SCH ×2 (11:42→20:17)
[2022-12-16] MEDS: Polyethylene Glycol 3350 17 GM Packet PO SCH (11:42)
[2022-12-16] MEDS: Cyclobenzaprine 10 MG TAB PO PRN (17:44)
[2022-12-16] MEDS: Rosuvastatin 10 MG TAB PO SCH (20:15)
[2022-12-16] MEDS: Insulin Glargine 30 UNITS/0.3 ML VIAL SC SCH (20:17)
[2022-12-17] MEDS: Acetaminophen 325 MG TAB PO SCH ×5 (06:24→23:46)
[2022-12-17] MEDS: HYDROcodone/Acetaminophen 10/325 mg Tablet PO PRN ×2 (06:25→20:40)
[2022-12-17] MEDS: Sevelamer Carbonate 800 MG TAB PO SCH ×3 (08:39→18:30)
[2022-12-17] MEDS: Clopidogrel Bisulfate 75 MG TAB PO SCH (08:40)
[2022-12-17] MEDS: Loratadine 10 MG TAB PO SCH (08:40)
[2022-12-17] MEDS: Senokot S 8.6-50 MG TAB PO SCH ×2 (08:40→20:32)
[2022-12-17] MEDS: Carvedilol 3.125 MG TAB PO SCH ×2 (08:40→18:35)
[2022-12-17] MEDS: Sertraline 100 MG TAB PO SCH (08:40)
[2022-12-17] MEDS: Gabapentin 300 MG CAP PO SCH ×3 (08:40→20:41)
[2022-12-17] MEDS: Polyethylene Glycol 3350 17 GM Packet PO SCH (08:40)
[2022-12-17] MEDS: Furosemide 40 MG TAB PO SCH ×2 (08:40→20:41)
[2022-12-17] MEDS: Aspirin Chewable 81 MG TAB PO SCH (08:40)
[2022-12-17 09:04] LABS: #Eosinphils 0.2 thou/uL (0.0-0.7); #Lymphocytes 1.5 thou/uL (1.20-3.40); #Monocytes 0.7 thou/uL (0.11-0.59); #Neutrophils 8.2 thou/uL (1.40-6.50); %Basophils 0.1 % (0.0-1.0); %Eosinophils 1.7 % (0.0-10.0); %Lymphocytes 14.6 % (21.0-51.0); %Monocytes 6.3 % (0.0-10.0); %Neutrophils 77.4 % (42.0-75.0); Mean Corpuscular HGB CONC 30.5 g/dL (32.0-36.0); Mean Corpuscular Hemoglobin 30.8 pg (27.0-31.0); Mean Platelet Volume 7.5 fL (7.4-10.4); Platelet Count 206 10x3/uL (130-400); RBC Distribution Width 13.2 % (11.5-14.5); Red Blood Cell (RBC) Count 3.26 mill/uL (4.20-5.40); White Blood Cell (WBC) Count 10.6 10x3/uL (4.8-10.8)
[2022-12-17] MEDS ORDERED: Heparin 10,000 UNITS/ 10 ML VIAL ONE (10:30)
[2022-12-17] MEDS: Arformoterol 15 MCG/2 ML NEB NEB SCH ×2 (10:35→19:01)
[2022-12-17] MEDS: Budesonide 0.5 MG/2 ML NEB NEB SCH ×2 (10:35→19:02)
[2022-12-17] MEDS: Cyclobenzaprine 10 MG TAB PO PRN (15:10)
[2022-12-17] MEDS: Rosuvastatin 10 MG TAB PO SCH (20:41)
[2022-12-17] MEDS: Insulin Glargine 30 UNITS/0.3 ML VIAL SC SCH (21:53)
[2022-12-18] MEDS: Acetaminophen 325 MG TAB PO SCH ×3 (05:22→17:32)
[2022-12-18] MEDS: Arformoterol 15 MCG/2 ML NEB NEB SCH ×2 (06:35→19:23)
[2022-12-18] MEDS: Budesonide 0.5 MG/2 ML NEB NEB SCH ×2 (06:35→19:23)
[2022-12-18] MEDS: Sertraline 100 MG TAB PO SCH (09:32)
[2022-12-18] MEDS: Senokot S 8.6-50 MG TAB PO SCH ×2 (09:32→21:14)
[2022-12-18] MEDS: Loratadine 10 MG TAB PO SCH (09:32)
[2022-12-18] MEDS: Furosemide 40 MG TAB PO SCH ×2 (09:32→21:12)
[2022-12-18] MEDS: Clopidogrel Bisulfate 75 MG TAB PO SCH (09:32)
[2022-12-18] MEDS: Sevelamer Carbonate 800 MG TAB PO SCH ×3 (09:32→17:32)
[2022-12-18] MEDS: Aspirin Chewable 81 MG TAB PO SCH (09:32)
[2022-12-18] MEDS: Gabapentin 300 MG CAP PO SCH ×3 (09:32→21:13)
[2022-12-18] MEDS: Polyethylene Glycol 3350 17 GM Packet PO SCH (09:33)
[2022-12-18] MEDS: Carvedilol 3.125 MG TAB PO SCH ×2 (09:33→17:32)
[2022-12-18] MEDS: Cyclobenzaprine 10 MG TAB PO PRN (21:11)
[2022-12-18] MEDS: Rosuvastatin 10 MG TAB PO SCH (21:12)
[2022-12-18] MEDS: HYDROcodone/Acetaminophen 10/325 mg Tablet PO PRN (21:12)
[2022-12-18] MEDS: Insulin Glargine 30 UNITS/0.3 ML VIAL SC SCH (21:12)
[2022-12-19] MEDS: Acetaminophen 325 MG TAB PO SCH ×4 (03:39→19:30)
[2022-12-19 06:13] LABS: Anion Gap 14 mmol/L (10-20); BUN (Urea Nitrogen) 45 mg/dL (9.8-20.1); Calc. Creatinine Clearance 14 mL/min (70-130); Calcium 8.4 mg/dL (7.8-10.44); Carbon Dioxide 28 mmol/L (23-31); Chloride 96 mmol/L (98-107); Estimated GFR 6; Glucose 93 mg/dL (83-110); Potassium 4.7 mmol/L (3.5-5.1); Sodium 133 mmol/L (136-145)
[2022-12-19] MEDS: Arformoterol 15 MCG/2 ML NEB NEB SCH ×2 (06:52→19:30)
[2022-12-19] MEDS: Budesonide 0.5 MG/2 ML NEB NEB SCH ×2 (06:53→19:30)
[2022-12-19] MEDS ORDERED: Heparin 10,000 UNITS/ 10 ML VIAL ONE (08:53)
[2022-12-19] MEDS: Aspirin Chewable 81 MG TAB PO SCH (08:57)
[2022-12-19] MEDS: Polyethylene Glycol 3350 17 GM Packet PO SCH (08:57)
[2022-12-19] MEDS: Sevelamer Carbonate 800 MG TAB PO SCH ×3 (08:57→19:30)
[2022-12-19] MEDS: Senokot S 8.6-50 MG TAB PO SCH (08:58)
[2022-12-19] MEDS: Furosemide 40 MG TAB PO SCH (08:58)
[2022-12-19] MEDS: Gabapentin 300 MG CAP PO SCH ×2 (08:58→19:17)
[2022-12-19] MEDS: Clopidogrel Bisulfate 75 MG TAB PO SCH (08:58)
[2022-12-19] MEDS: Sertraline 100 MG TAB PO SCH (08:58)
[2022-12-19] MEDS: Carvedilol 3.125 MG TAB PO SCH ×2 (08:58→19:30)
[2022-12-19] MEDS: Loratadine 10 MG TAB PO SCH (08:58)
[2022-12-19] MEDS: HYDROcodone/Acetaminophen 10/325 mg Tablet PO PRN (08:59)
[2022-12-19 11:47] VITALS: BP 131/74; TEMP 98.4
== END 2022-12-19 19:31 | DRG 492 ==
LOC: ERS 08:40 → ERHOLD 10:47 → OBSVTOIN 12:18 → EEVIPCON 12:18 → SURG A 21:39
PROVIDERS: ADMIT Surgery; ATTEND Surgery
PROC: 5A1D70Z Performance of Urinary Filtration, Intermittent, Less than 6 Hours Per Day (ICD-10-PCS; 2022-12-11)
PROC: B51W1ZZ Fluoroscopy of Dialysis Shunt/Fistula using Low Osmolar Contrast (ICD-10-PCS; 2022-12-13)
PROC: 0QSG04Z Reposition Right Tibia with Internal Fixation Device, Open Approach (ICD-10-PCS; principal; 2022-12-14)
DX: S82.841A Displaced bimalleolar fracture of right lower leg, initial encounter for closed fracture (principal); N18.6 End stage renal disease; E87.1 Hypo-osmolality and hyponatremia; I12.0 Hypertensive chronic kidney disease with stage 5 chronic kidney disease or end stage renal disease; Z68.42 Body mass index [BMI] 45.0-49.9, adult; E87.20 Acidosis, unspecified; N25.81 Secondary hyperparathyroidism of renal origin; N39.0 Urinary tract infection, site not specified; Z20.822 Contact with and (suspected) exposure to COVID-19; I25.10 Atherosclerotic heart disease of native coronary artery without angina pectoris; E11.22 Type 2 diabetes mellitus with diabetic chronic kidney disease; E78.5 Hyperlipidemia, unspecified; J44.9 Chronic obstructive pulmonary disease, unspecified; R29.6 Repeated falls; G89.29 Other chronic pain; M54.9 Dorsalgia, unspecified; F32.A Depression, unspecified; D63.1 Anemia in chronic kidney disease; S20.219A Contusion of unspecified front wall of thorax, initial encounter; W06.XXXA Fall from bed, initial encounter; Y92.003 Bedroom of unspecified non-institutional (private) residence as the place of occurrence of the external cause; Z87.442 Personal history of urinary calculi; Z90.49 Acquired absence of other specified parts of digestive tract; Z99.2 Dependence on renal dialysis; Z99.81 Dependence on supplemental oxygen; Z91.81 History of falling; Z95.5 Presence of coronary angioplasty implant and graft; Z88.6 Allergy status to analgesic agent; Z88.8 Allergy status to other drugs, medicaments and biological substances; Z91.09 Other allergy status, other than to drugs and biological substances; Z79.899 Other long term (current) drug therapy; Z79.02 Long term (current) use of antithrombotics/antiplatelets; Z90.710 Acquired absence of both cervix and uterus
CPT/HCPCS: 29515; 36415; 36416; 36901; 71045; 80048; 80053; 81001; 83735; 84100; 85025; 85610; 85730; 86704; 86850; 86900; 86901; 87086; 87811; 90714; 90715; 90935; 94640; C1713; G0257; G0390; J0696; J1100; J1644; J1815; J2270; J2272; J2405; J2704; J2795; J3010; J3490; J7626; L1832; S0020; U0002

== ENCOUNTER 2023-07-23 05:46 | Inpatient (IN) | payer OTHER ==
[2023-07-23 06:55] LABS: #Eosinphils 0.2 thou/uL (0.0-0.7); #Monocytes 0.5 thou/uL (0.11-0.59); #Neutrophils 6.8 thou/uL (1.40-6.50); %Basophils 0.5 % (0.0-1.0); %Eosinophils 1.8 % (0.0-10.0); %Lymphocytes 13.4 % (21.0-51.0); %Monocytes 6.1 % (0.0-10.0); %Neutrophils 77.6 % (42.0-75.0); Hematocrit 39.8 % (36.0-47.0); Hemoglobin 12.7 g/dL (12.0-16.0); Mean Corpuscular HGB CONC 31.9 g/dL (32.0-36.0); Mean Corpuscular Hemoglobin 29.7 pg (27.0-31.0); Mean Platelet Volume 9.9 fL (7.4-10.4); Platelet Count 156 10x3/uL (130-400); RBC Distribution Width 16.7 % (11.5-14.5); Red Blood Cell (RBC) Count 4.28 mill/uL (4.20-5.40); White Blood Cell (WBC) Count 8.7 10x3/uL (4.8-10.8)
[2023-07-23 07:35] LABS: Troponin I 0.042 ng/mL (< 0.028)
[2023-07-23 07:54] LABS: ALT (SGPT) Less than 7 U/L (8-55); AST (SGOT) 13 U/L (5-34); Albumin 3.4 g/dL (3.4-4.8); Alkaline Phosphatase 147 U/L (40-110); Anion Gap 23 mmol/L (10-20); BUN (Urea Nitrogen) 69 mg/dL (9.8-20.1); Bilirubin, Total 0.5 mg/dL (0.2-1.2); Calc. Creatinine Clearance 0 mL/min (70-130); Calcium 8.6 mg/dL (7.8-10.44); Carbon Dioxide 21 mmol/L (23-31); Chloride 93 mmol/L (98-107); Estimated GFR 4; Globulin 3.1 g/dL (2.4-3.5); Glucose 112 mg/dL (83-110); Potassium 4.8 mmol/L (3.5-5.1); Protein, Total 6.5 g/dL (5.8-8.1); Sodium 132 mmol/L (136-145)
[2023-07-23] MEDS ORDERED: Furosemide 100 MG/10 ML VIAL ONE (08:36)
[2023-07-23] MEDS ORDERED: Azithromycin 250 MG TAB ONE (09:31)
[2023-07-23] MEDS ORDERED: methylPREDNISolone Sod Succ/PF 125 MG/2 ML VIAL ONE (09:31)
[2023-07-23] MEDS ORDERED: cefTRIAXone (ROCEPHIN) 2 GM VIAL ONE (09:31)
[2023-07-23] MEDS ORDERED: Ipratropium/Albuterol 3 ML NEB ONE (09:31)
[2023-07-23] MEDS ORDERED: Heparin 10,000 UNITS/ 10 ML VIAL ONE (10:48)
[2023-07-23] MEDS ORDERED: Calcium Carbonate 500 MG ChewTAB PO PRN (11:18)
[2023-07-23] MEDS ORDERED: Senokot S 8.6-50 MG TAB PO PRN (11:18)
[2023-07-23] MEDS ORDERED: Acetaminophen 325 MG TAB PO PRN (11:18)
[2023-07-23] MEDS ORDERED: Dextrose 50% Abboject 50 ML SYRINGE SLOW IVP PRN (11:25)
[2023-07-23] MEDS ORDERED: Dextrose 5% in Water 1,000 ML IV PRN (11:25)
[2023-07-23] MEDS ORDERED: HumaLOG 300 UNITS/3 ML VIAL SC PRN ×2 (11:25)
[2023-07-23] MEDS ORDERED: Glucagon 1 MG/ML KIT IM PRN (11:25)
[2023-07-23 13:04] LABS: Troponin I 0.027 ng/mL (< 0.028)
[2023-07-23] MEDS: Heparin 5,000 UNITS/ML VIAL SC SCH ×2 (15:00→21:37)
[2023-07-23] MEDS ORDERED: FLU VACC QS2023(65UP)/MF59C/PF 60 MCG/0.5 ML SYRINGE IM ONE (16:30)
[2023-07-23] MEDS ORDERED: Famotidine 20 MG TAB PO SCH (21:00)
[2023-07-24 04:53] LABS: #Monocytes 0.5 thou/uL (0.11-0.59); %Basophils 0.1 % (0.0-1.0); %Lymphocytes 11.3 % (21.0-51.0); %Monocytes 7.3 % (0.0-10.0); %Neutrophils 80.9 % (42.0-75.0); Hematocrit 32.6 % (36.0-47.0); Hemoglobin 10.4 g/dL (12.0-16.0); Mean Corpuscular HGB CONC 31.9 g/dL (32.0-36.0); Mean Corpuscular Hemoglobin 30.1 pg (27.0-31.0); Mean Corpuscular Volume 94.5 fl (78.0-98.0); Mean Platelet Volume 9.5 fL (7.4-10.4); Platelet Count 144 10x3/uL (130-400); RBC Distribution Width 16.1 % (11.5-14.5); Red Blood Cell (RBC) Count 3.45 mill/uL (4.20-5.40); White Blood Cell (WBC) Count 7.4 10x3/uL (4.8-10.8)
[2023-07-24 05:24] LABS: Anion Gap 18 mmol/L (10-20); BUN (Urea Nitrogen) 34 mg/dL (9.8-20.1); Calc. Creatinine Clearance 14 mL/min (70-130); Calcium 8.1 mg/dL (7.8-10.44); Carbon Dioxide 25 mmol/L (23-31); Chloride 95 mmol/L (98-107); Estimated GFR 7; Glucose 127 mg/dL (83-110); Potassium 3.5 mmol/L (3.5-5.1); Sodium 134 mmol/L (136-145)
[2023-07-24 05:59] LABS: Bacteria/HPF 2+ HPF (None Seen); Bilirubin Negative (Negative); Blood, Urine 2+ (Negative); Clarity Turbid (Clear); Glucose, Urine (Dipstick) Normal (Negative); Ketone, Urine Negative (Negative); Leukocyte 500 Leu/uL (Negative); Nitrite Negative (Negative); Protein, Urine (Dipstick) 200 mg/dL (Neg-Trace); Specific Gravity, Urine 1.036 (1.002-1.036); Squamous Epithelial Greater than 50 HPF (0-3); WBC/HPF Greater than 50 HPF (0-3); pH, Urine 7.5 (5.0-9.0)
[2023-07-24] MEDS ORDERED: Heparin 10,000 UNITS/ 10 ML VIAL ONE (08:34)
[2023-07-24] MEDS: Gabapentin 300 MG CAP PO SCH (09:34)
[2023-07-24] MEDS: Sertraline 100 MG TAB PO SCH (09:35)
[2023-07-24] MEDS: Aspirin Chewable 81 MG TAB PO SCH (09:35)
[2023-07-24] MEDS: Heparin 5,000 UNITS/ML VIAL SC SCH ×3 (09:35→20:50)
[2023-07-24] MEDS: Clopidogrel Bisulfate 75 MG TAB PO SCH (09:37)
[2023-07-24] MEDS: Sevelamer Carbonate 800 MG TAB PO SCH ×2 (12:29→17:16)
[2023-07-24] MEDS: Carvedilol 3.125 MG TAB PO SCH (17:16)
[2023-07-24] MEDS: Rosuvastatin 10 MG TAB PO SCH (20:49)
[2023-07-24] MEDS: Insulin Glargine 30 UNITS/0.3 ML VIAL SC SCH (20:50)
[2023-07-24] MEDS: Cyclobenzaprine 10 MG TAB PO PRN (20:50)
[2023-07-25 05:28] LABS: #Eosinphils 0.1 thou/uL (0.0-0.7); #Monocytes 0.7 thou/uL (0.11-0.59); %Basophils 0.4 % (0.0-1.0); %Eosinophils 1.8 % (0.0-10.0); %Lymphocytes 18.9 % (21.0-51.0); %Monocytes 9.9 % (0.0-10.0); %Neutrophils 68.5 % (42.0-75.0); Hematocrit 33.1 % (36.0-47.0); Hemoglobin 10.1 g/dL (12.0-16.0); Mean Corpuscular HGB CONC 30.5 g/dL (32.0-36.0); Mean Corpuscular Hemoglobin 29.6 pg (27.0-31.0); Mean Corpuscular Volume 97.1 fl (78.0-98.0); Mean Platelet Volume 9.5 fL (7.4-10.4); Platelet Count 141 10x3/uL (130-400); RBC Distribution Width 16.7 % (11.5-14.5); Red Blood Cell (RBC) Count 3.41 mill/uL (4.20-5.40); White Blood Cell (WBC) Count 7.3 10x3/uL (4.8-10.8)
[2023-07-25 05:55] LABS: Anion Gap 14 mmol/L (10-20); BUN (Urea Nitrogen) 25 mg/dL (9.8-20.1); Calc. Creatinine Clearance 17 mL/min (70-130); Calcium 8.5 mg/dL (7.8-10.44); Carbon Dioxide 27 mmol/L (23-31); Chloride 99 mmol/L (98-107); Estimated GFR 9; Glucose 101 mg/dL (83-110); Potassium 3.6 mmol/L (3.5-5.1); Sodium 136 mmol/L (136-145)
[2023-07-25] MEDS: Aspirin Chewable 81 MG TAB PO SCH (10:04)
[2023-07-25] MEDS: Clopidogrel Bisulfate 75 MG TAB PO SCH (10:04)
[2023-07-25] MEDS: Sertraline 100 MG TAB PO SCH (10:04)
[2023-07-25] MEDS: Sevelamer Carbonate 800 MG TAB PO SCH ×3 (10:04→18:01)
[2023-07-25] MEDS: Carvedilol 3.125 MG TAB PO SCH ×2 (10:04→18:01)
[2023-07-25] MEDS: Gabapentin 300 MG CAP PO SCH (10:04)
[2023-07-25] MEDS: Heparin 5,000 UNITS/ML VIAL SC SCH ×3 (10:04→20:23)
[2023-07-25] MEDS: Cyclobenzaprine 10 MG TAB PO PRN (20:22)
[2023-07-25] MEDS: Rosuvastatin 10 MG TAB PO SCH (20:23)
[2023-07-25] MEDS: Insulin Glargine 30 UNITS/0.3 ML VIAL SC SCH (20:38)
[2023-07-26] MEDS ORDERED: Heparin 10,000 UNITS/ 10 ML VIAL ONE (08:37)
[2023-07-26] MEDS: Aspirin Chewable 81 MG TAB PO SCH (09:13)
[2023-07-26] MEDS: Heparin 5,000 UNITS/ML VIAL SC SCH ×3 (09:13→20:54)
[2023-07-26] MEDS: Sevelamer Carbonate 800 MG TAB PO SCH ×3 (09:14→17:28)
[2023-07-26] MEDS: Sertraline 100 MG TAB PO SCH (09:14)
[2023-07-26] MEDS: Carvedilol 3.125 MG TAB PO SCH ×2 (09:14→17:28)
[2023-07-26] MEDS: Gabapentin 300 MG CAP PO SCH (09:14)
[2023-07-26] MEDS: Clopidogrel Bisulfate 75 MG TAB PO SCH (09:14)
[2023-07-26] MEDS ORDERED: Tuberculin PPD 0.1 ML VIAL I-DERMAL SCH (14:00)
[2023-07-26 14:01] LABS: HBCM Index 0.09 S/CO (0-0.79); Hep A IgM AB Non-Reactive S/CO (NonReactive); Hep A IgM S/CO 0.27 S/CO (0-0.79); Hep B Surf Ag Non-Reactive S/CO (NonReactive); Hep C IgG Ab Non-Reactive S/CO (NonReactive); Hep C Index 0.24 S/CO (0-0.79); Hepatitis B Core IgM Abs Non-Reactive S/CO (NonReactive)
[2023-07-26] MEDS: Rosuvastatin 10 MG TAB PO SCH (20:54)
[2023-07-26] MEDS: Insulin Glargine 30 UNITS/0.3 ML VIAL SC SCH (20:55)
[2023-07-27 06:09] LABS: HBSAg Index 0.23 S/CO (0-0.99); Hep B Core Total Ab Non-Reactive (NonReactive); Hep B Core Total Index 0.14 S/CO (0-0.79); Hep B Surf Ag Non-Reactive S/CO (NonReactive); Hep C IgG Ab Non-Reactive S/CO (NonReactive); Hep C Index 0.22 S/CO (0-0.79)
[2023-07-27 06:10] LABS: HBSAB Concentration 153.63 mIU/mL; Hep B Surf AB Reactive (NonReactive)
[2023-07-27] MEDS: Carvedilol 3.125 MG TAB PO SCH ×2 (10:14→17:46)
[2023-07-27] MEDS: Sevelamer Carbonate 800 MG TAB PO SCH ×3 (10:14→17:46)
[2023-07-27] MEDS: Gabapentin 300 MG CAP PO SCH (10:15)
[2023-07-27] MEDS: Heparin 5,000 UNITS/ML VIAL SC SCH ×3 (10:15→20:09)
[2023-07-27] MEDS: Aspirin Chewable 81 MG TAB PO SCH (10:15)
[2023-07-27] MEDS: Clopidogrel Bisulfate 75 MG TAB PO SCH (10:15)
[2023-07-27] MEDS: Sertraline 100 MG TAB PO SCH (10:15)
[2023-07-27] MEDS: Rosuvastatin 10 MG TAB PO SCH (20:10)
[2023-07-27] MEDS: Insulin Glargine 30 UNITS/0.3 ML VIAL SC SCH (20:45)
[2023-07-28] MEDS: Sevelamer Carbonate 800 MG TAB PO SCH ×3 (08:16→16:47)
[2023-07-28] MEDS: Aspirin Chewable 81 MG TAB PO SCH (08:16)
[2023-07-28] MEDS: Carvedilol 3.125 MG TAB PO SCH ×2 (08:16→16:47)
[2023-07-28] MEDS: Gabapentin 300 MG CAP PO SCH (08:16)
[2023-07-28] MEDS: Clopidogrel Bisulfate 75 MG TAB PO SCH (08:16)
[2023-07-28] MEDS: Sertraline 100 MG TAB PO SCH (08:16)
[2023-07-28] MEDS: Heparin 5,000 UNITS/ML VIAL SC SCH ×3 (08:16→21:39)
[2023-07-28] MEDS ORDERED: READ PPD TEST SITE PO SCH (14:00)
[2023-07-28] MEDS: Rosuvastatin 10 MG TAB PO SCH (21:39)
[2023-07-28] MEDS: Insulin Glargine 30 UNITS/0.3 ML VIAL SC SCH (21:39)
[2023-07-29 05:23] LABS: #Eosinphils 0.3 thou/uL (0.0-0.7); #Monocytes 0.7 thou/uL (0.11-0.59); %Basophils 0.3 % (0.0-1.0); %Lymphocytes 15.6 % (21.0-51.0); %Monocytes 7.7 % (0.0-10.0); %Neutrophils 72.8 % (42.0-75.0); Hematocrit 33.2 % (36.0-47.0); Hemoglobin 10.3 g/dL (12.0-16.0); Mean Corpuscular Hemoglobin 30.1 pg (27.0-31.0); Mean Corpuscular Volume 97.1 fl (78.0-98.0); Mean Platelet Volume 9.8 fL (7.4-10.4); Platelet Count 126 10x3/uL (130-400); RBC Distribution Width 16.1 % (11.5-14.5); Red Blood Cell (RBC) Count 3.42 mill/uL (4.20-5.40); White Blood Cell (WBC) Count 9.6 10x3/uL (4.8-10.8)
[2023-07-29 05:42] LABS: Anion Gap 13 mmol/L (10-20); BUN (Urea Nitrogen) 47 mg/dL (9.8-20.1); Calc. Creatinine Clearance 13 mL/min (70-130); Calcium 8.6 mg/dL (7.8-10.44); Carbon Dioxide 26 mmol/L (23-31); Chloride 99 mmol/L (98-107); Estimated GFR 7; Glucose 112 mg/dL (83-110); Potassium 3.6 mmol/L (3.5-5.1); Sodium 134 mmol/L (136-145)
[2023-07-29] MEDS: Clopidogrel Bisulfate 75 MG TAB PO SCH (08:19)
[2023-07-29] MEDS: Carvedilol 3.125 MG TAB PO SCH ×2 (08:19→15:59)
[2023-07-29] MEDS: Aspirin Chewable 81 MG TAB PO SCH (08:19)
[2023-07-29] MEDS: Sevelamer Carbonate 800 MG TAB PO SCH ×3 (08:19→15:59)
[2023-07-29] MEDS: Sertraline 100 MG TAB PO SCH (08:20)
[2023-07-29] MEDS: Heparin 5,000 UNITS/ML VIAL SC SCH ×3 (08:20→22:07)
[2023-07-29] MEDS: Gabapentin 300 MG CAP PO SCH (08:20)
[2023-07-29] MEDS ORDERED: Heparin 10,000 UNITS/ 10 ML VIAL ONE (08:55)
[2023-07-29] MEDS: Cephalexin 250 MG CAP PO SCH ×2 (10:08→21:48)
[2023-07-29 10:45] VITALS: BMI 43.5
[2023-07-29] MEDS: Rosuvastatin 10 MG TAB PO SCH (21:48)
[2023-07-29] MEDS: Insulin Glargine 30 UNITS/0.3 ML VIAL SC SCH (21:49)
[2023-07-30] MEDS: Heparin 5,000 UNITS/ML VIAL SC SCH ×2 (08:46→16:29)
[2023-07-30] MEDS: Carvedilol 3.125 MG TAB PO SCH ×2 (08:47→16:30)
[2023-07-30] MEDS: Aspirin Chewable 81 MG TAB PO SCH (08:48)
[2023-07-30] MEDS: Cephalexin 250 MG CAP PO SCH (08:48)
[2023-07-30] MEDS: Sevelamer Carbonate 800 MG TAB PO SCH ×3 (08:48→16:30)
[2023-07-30] MEDS: Clopidogrel Bisulfate 75 MG TAB PO SCH (08:48)
[2023-07-30] MEDS: Sertraline 100 MG TAB PO SCH (08:49)
[2023-07-30] MEDS: Gabapentin 300 MG CAP PO SCH (08:49)
[2023-07-30] MEDS ORDERED: Loperamide HCl 2 MG CAP PO SCH (11:30)
[2023-07-30 18:02] VITALS: BP 129/60; TEMP 97.9
== END 2023-07-30 19:18 | disposition home or self-care (01) | DRG 291 ==
LOC: ERS 05:46 → 2NO 09:31 → OBSVTOIN 07-24 10:03
PROVIDERS: ADMIT Internal Medicine; ATTEND Internal Medicine
PROC: 5A1D70Z Performance of Urinary Filtration, Intermittent, Less than 6 Hours Per Day (ICD-10-PCS; principal; 2023-07-24)
PROC: 5A1D70Z Performance of Urinary Filtration, Intermittent, Less than 6 Hours Per Day (ICD-10-PCS; 2023-07-26)
PROC: 5A1D70Z Performance of Urinary Filtration, Intermittent, Less than 6 Hours Per Day (ICD-10-PCS; 2023-07-29)
DX: I13.2 Hypertensive heart and chronic kidney disease with heart failure and with stage 5 chronic kidney disease, or end stage renal disease (principal); I50.33 Acute on chronic diastolic (congestive) heart failure; N18.6 End stage renal disease; J96.01 Acute respiratory failure with hypoxia; E87.1 Hypo-osmolality and hyponatremia; E87.20 Acidosis, unspecified; Z68.41 Body mass index [BMI] 40.0-44.9, adult; J96.11 Chronic respiratory failure with hypoxia; N39.0 Urinary tract infection, site not specified; E66.01 Morbid (severe) obesity due to excess calories; I08.0 Rheumatic disorders of both mitral and aortic valves; E78.00 Pure hypercholesterolemia, unspecified; K21.9 Gastro-esophageal reflux disease without esophagitis; G47.33 Obstructive sleep apnea (adult) (pediatric); D63.1 Anemia in chronic kidney disease; E11.22 Type 2 diabetes mellitus with diabetic chronic kidney disease; E78.5 Hyperlipidemia, unspecified; Z90.49 Acquired absence of other specified parts of digestive tract; Z90.710 Acquired absence of both cervix and uterus; Z98.890 Other specified postprocedural states; Z88.1 Allergy status to other antibiotic agents; Z88.8 Allergy status to other drugs, medicaments and biological substances; Z99.2 Dependence on renal dialysis; Z79.4 Long term (current) use of insulin; Z79.899 Other long term (current) drug therapy; Z79.51 Long term (current) use of inhaled steroids; Z86.73 Personal history of transient ischemic attack (TIA), and cerebral infarction without residual deficits; Z79.82 Long term (current) use of aspirin
CPT/HCPCS: 36415; 36416; 71045; 71046; 74176; 80048; 80053; 80074; 81001; 83605; 83880; 84484; 85025; 86580; 86704; 87040; 90935; 93005; 94760; 96372; 96374; 96375; G0257; G0378; J0696; J1644; J1815; J1940; J2930; J7620

== ENCOUNTER 2023-08-12 15:10 | Inpatient (IN) | payer OTHER ==
[2023-08-12 17:21] LABS: Bacteria/HPF 1+ HPF (None Seen); Bilirubin 1+ (Negative); Blood, Urine 1+ (Negative); CAUTI Indications for Culture Pelvic or flank pain; Clarity Turbid (Clear); Glucose, Urine (Dipstick) Normal (Negative); Ketone, Urine Negative (Negative); Leukocyte 500 Leu/uL (Negative); Nitrite Negative (Negative); Protein, Urine (Dipstick) 50 mg/dL (Neg-Trace); Specific Gravity, Urine 1.019 (1.002-1.036); Squamous Epithelial 0-3 HPF (0-3); Urobilinogen Normal mg/dL (Less than 2); WBC/HPF Greater than 50 HPF (0-3); pH, Urine 5.5 (5.0-9.0)
[2023-08-12 17:24] LABS: Urine Culture Reflex Yes Yes
[2023-08-12 18:28] LABS: #Eosinphils 0.2 thou/uL (0.0-0.7); #Monocytes 0.7 thou/uL (0.11-0.59); #Neutrophils 7.3 thou/uL (1.40-6.50); %Basophils 0.2 % (0.0-1.0); %Eosinophils 2.2 % (0.0-10.0); %Lymphocytes 14.3 % (21.0-51.0); %Monocytes 6.8 % (0.0-10.0); %Neutrophils 76.1 % (42.0-75.0); Hematocrit 37.2 % (36.0-47.0); Hemoglobin 11.3 g/dL (12.0-16.0); Mean Corpuscular HGB CONC 30.4 g/dL (32.0-36.0); Mean Corpuscular Hemoglobin 30.5 pg (27.0-31.0); Mean Corpuscular Volume 100.3 fl (78.0-98.0); Mean Platelet Volume 9.4 fL (7.4-10.4); Platelet Count 171 10x3/uL (130-400); RBC Distribution Width 19.4 % (11.5-14.5); Red Blood Cell (RBC) Count 3.71 mill/uL (4.20-5.40); White Blood Cell (WBC) Count 9.6 10x3/uL (4.8-10.8)
[2023-08-12 18:51] LABS: ALT (SGPT) Less than 7 U/L (8-55); AST (SGOT) 12 U/L (5-34); Albumin 3.4 g/dL (3.4-4.8); Alkaline Phosphatase 126 U/L (40-110); Anion Gap 17 mmol/L (10-20); BUN (Urea Nitrogen) 47 mg/dL (9.8-20.1); Bilirubin, Total 0.5 mg/dL (0.2-1.2); Calc. Creatinine Clearance 0 mL/min (70-130); Calcium 8.8 mg/dL (7.8-10.44); Carbon Dioxide 22 mmol/L (23-31); Chloride 101 mmol/L (98-107); Estimated GFR 7; Globulin 2.6 g/dL (2.4-3.5); Glucose 141 mg/dL (83-110); Magnesium 2.2 mg/dL (1.6-2.6); Potassium 3.9 mmol/L (3.5-5.1); Sodium 136 mmol/L (136-145)
[2023-08-12 18:57] LABS: Troponin I 0.023 ng/mL (< 0.028)
[2023-08-12] MEDS ORDERED: Furosemide 40 MG/4 ML VIAL ONE (19:32)
[2023-08-12] MEDS ORDERED: cefTRIAXone (ROCEPHIN) 1 GM VIAL ONE (19:32)
[2023-08-12] MEDS ORDERED: Ondansetron ODT 4 MG TAB PO PRN (21:02)
[2023-08-12] MEDS ORDERED: Dextrose 50% Abboject 50 ML SYRINGE SLOW IVP PRN (21:02)
[2023-08-12] MEDS ORDERED: HumaLOG 300 UNITS/3 ML VIAL SC PRN ×2 (21:02)
[2023-08-12] MEDS ORDERED: Acetaminophen 325 MG TAB PO PRN (21:02)
[2023-08-12] MEDS ORDERED: Ondansetron PF 4 MG/2 ML Vial IVP PRN (21:02)
[2023-08-12] MEDS ORDERED: Dextrose 5% in Water 1,000 ML IV PRN (21:02)
[2023-08-12] MEDS ORDERED: Glucagon 1 MG/ML KIT IM PRN (21:02)
[2023-08-12 22:40] LABS: Phosphorus 3.2 mg/dL (2.3-4.7)
[2023-08-13 02:43] VITALS: BMI 44.2
[2023-08-13] MEDS ORDERED: Furosemide 20 MG/2 ML VIAL SLOW IVP SCH (06:00)
[2023-08-13] MEDS ORDERED: Heparin 10,000 UNITS/ 10 ML VIAL ONE (09:27)
[2023-08-13 09:49] LABS: #Eosinphils 0.3 thou/uL (0.0-0.7); #Monocytes 0.9 thou/uL (0.11-0.59); %Basophils 0.4 % (0.0-1.0); %Eosinophils 2.7 % (0.0-10.0); %Neutrophils 73.5 % (42.0-75.0); Hematocrit 38.5 % (36.0-47.0); Hemoglobin 11.8 g/dL (12.0-16.0); Mean Corpuscular HGB CONC 30.6 g/dL (32.0-36.0); Mean Corpuscular Hemoglobin 31.1 pg (27.0-31.0); Mean Corpuscular Volume 101.6 fl (78.0-98.0); Mean Platelet Volume 9.8 fL (7.4-10.4); Platelet Count 149 10x3/uL (130-400); RBC Distribution Width 19.5 % (11.5-14.5); Red Blood Cell (RBC) Count 3.79 mill/uL (4.20-5.40); White Blood Cell (WBC) Count 10.8 10x3/uL (4.8-10.8)
[2023-08-13] MEDS: Heparin 5,000 UNITS/ML VIAL SC SCH ×2 (10:03→21:48)
[2023-08-13 10:09] LABS: Anion Gap 18 mmol/L (10-20); BUN (Urea Nitrogen) 50 mg/dL (9.8-20.1); Calc. Creatinine Clearance 13 mL/min (70-130); Carbon Dioxide 19 mmol/L (23-31); Chloride 101 mmol/L (98-107); Estimated GFR 6; Glucose 116 mg/dL (83-110); Potassium 4.1 mmol/L (3.5-5.1); Sodium 134 mmol/L (136-145)
[2023-08-13] MEDS: Sevelamer Carbonate 800 MG TAB PO SCH ×2 (15:49→18:42)
[2023-08-13] MEDS: Carvedilol 3.125 MG TAB PO SCH (18:42)
[2023-08-13] MEDS: cefTRIAXone\\ROCEPHIN 1 GM in Sodium Chloride 0.9% 100 ML IVPB SCH (19:38)
[2023-08-13] MEDS: Rosuvastatin 10 MG TAB PO SCH (21:47)
[2023-08-14 04:40] LABS: #Eosinphils 0.3 thou/uL (0.0-0.7); #Monocytes 0.8 thou/uL (0.11-0.59); #Neutrophils 6.1 thou/uL (1.40-6.50); %Basophils 0.3 % (0.0-1.0); %Eosinophils 3.5 % (0.0-10.0); %Lymphocytes 15.9 % (21.0-51.0); %Monocytes 9.4 % (0.0-10.0); %Neutrophils 70.7 % (42.0-75.0); Hemoglobin 10.8 g/dL (12.0-16.0); Mean Corpuscular HGB CONC 30.9 g/dL (32.0-36.0); Mean Corpuscular Volume 100.6 fl (78.0-98.0); Mean Platelet Volume 9.8 fL (7.4-10.4); Platelet Count 133 10x3/uL (130-400); RBC Distribution Width 19.3 % (11.5-14.5); Red Blood Cell (RBC) Count 3.48 mill/uL (4.20-5.40); White Blood Cell (WBC) Count 8.6 10x3/uL (4.8-10.8)
[2023-08-14 05:14] LABS: Anion Gap 19 mmol/L (10-20); BUN (Urea Nitrogen) 56 mg/dL (9.8-20.1); Calc. Creatinine Clearance 12 mL/min (70-130); Calcium 8.3 mg/dL (7.8-10.44); Carbon Dioxide 20 mmol/L (23-31); Chloride 101 mmol/L (98-107); Estimated GFR 6; Glucose 92 mg/dL (83-110); Potassium 4.1 mmol/L (3.5-5.1); Sodium 136 mmol/L (136-145)
[2023-08-14] MEDS: Heparin 5,000 UNITS/ML VIAL SC SCH ×2 (10:05→20:39)
[2023-08-14] MEDS: Sevelamer Carbonate 800 MG TAB PO SCH ×3 (10:08→17:53)
[2023-08-14] MEDS: Aspirin 81 mg Enteric Coated Tablet PO SCH (10:08)
[2023-08-14] MEDS: Clopidogrel Bisulfate 75 MG TAB PO SCH (10:08)
[2023-08-14] MEDS: Carvedilol 3.125 MG TAB PO SCH ×2 (10:08→17:53)
[2023-08-14] MEDS: cefTRIAXone\\ROCEPHIN 1 GM in Sodium Chloride 0.9% 100 ML IVPB SCH (18:42)
[2023-08-14] MEDS: Vancomycin HCl 125 MG Capsule PO SCH (18:42)
[2023-08-14] MEDS: Rosuvastatin 10 MG TAB PO SCH (20:39)
[2023-08-15] MEDS: Vancomycin HCl 125 MG Capsule PO SCH ×3 (00:18→13:36)
[2023-08-15 05:03] LABS: #Eosinphils 0.3 thou/uL (0.0-0.7); #Monocytes 0.9 thou/uL (0.11-0.59); #Neutrophils 6.8 thou/uL (1.40-6.50); %Basophils 0.3 % (0.0-1.0); %Eosinophils 2.5 % (0.0-10.0); %Lymphocytes 19.2 % (21.0-51.0); %Monocytes 9.1 % (0.0-10.0); %Neutrophils 68.6 % (42.0-75.0); Hematocrit 34.3 % (36.0-47.0); Hemoglobin 10.3 g/dL (12.0-16.0); Mean Corpuscular Hemoglobin 30.8 pg (27.0-31.0); Mean Corpuscular Volume 102.7 fl (78.0-98.0); Mean Platelet Volume 9.9 fL (7.4-10.4); Platelet Count 116 10x3/uL (130-400); RBC Distribution Width 19.5 % (11.5-14.5); Red Blood Cell (RBC) Count 3.34 mill/uL (4.20-5.40); White Blood Cell (WBC) Count 9.9 10x3/uL (4.8-10.8)
[2023-08-15 05:34] LABS: Anion Gap 18 mmol/L (10-20); BUN (Urea Nitrogen) 63 mg/dL (9.8-20.1); Calc. Creatinine Clearance 10 mL/min (70-130); Calcium 8.1 mg/dL (7.8-10.44); Carbon Dioxide 19 mmol/L (23-31); Chloride 101 mmol/L (98-107); Estimated GFR 5; Glucose 115 mg/dL (83-110); Potassium 4.2 mmol/L (3.5-5.1); Sodium 134 mmol/L (136-145)
[2023-08-15 06:15] LABS: Anisocytosis SLIGHT = 6-15 cells HPF (0-5); Burr Cells SLIGHT = 2-5 cells HPF (0-1); CellaVision Operator ID LAB.JMM; Macrocytosis SLIGHT = 6-15 cells HPF (0-5); Platelet Adequacy Comment Platelets Decreased; Polychromasia SLIGHT = 2-3 cells HPF (0-2); Smudge Cells 13.6 %
[2023-08-15] MEDS: Carvedilol 3.125 MG TAB PO SCH (08:40)
[2023-08-15] MEDS: Aspirin 81 mg Enteric Coated Tablet PO SCH (08:41)
[2023-08-15] MEDS: Heparin 5,000 UNITS/ML VIAL SC SCH (08:41)
[2023-08-15] MEDS: Sevelamer Carbonate 800 MG TAB PO SCH ×2 (08:41→13:36)
[2023-08-15] MEDS ORDERED: Heparin 10,000 UNITS/ 10 ML VIAL ONE (08:41)
[2023-08-15] MEDS: Clopidogrel Bisulfate 75 MG TAB PO SCH (08:41)
[2023-08-15] MEDS ORDERED: Saccharomyces boulardii 250 MG CAP PO SCH (09:00)
[2023-08-15 13:35] VITALS: BP 134/40; TEMP 97.6
== END 2023-08-15 15:06 | disposition home health service (06) | DRG 371 ==
LOC: ERS 15:10 → ERHOLD 20:46 → 2NO 08-13 14:53
PROVIDERS: ADMIT Student in an Organized Health Care Education/Training Program; ATTEND Internal Medicine
PROC: 5A1D70Z Performance of Urinary Filtration, Intermittent, Less than 6 Hours Per Day (ICD-10-PCS; principal; 2023-08-13)
PROC: 5A1D70Z Performance of Urinary Filtration, Intermittent, Less than 6 Hours Per Day (ICD-10-PCS; 2023-08-15)
DX: A04.72 Enterocolitis due to Clostridium difficile, not specified as recurrent (principal); N18.6 End stage renal disease; I13.2 Hypertensive heart and chronic kidney disease with heart failure and with stage 5 chronic kidney disease, or end stage renal disease; N39.0 Urinary tract infection, site not specified; Z68.41 Body mass index [BMI] 40.0-44.9, adult; J96.11 Chronic respiratory failure with hypoxia; E87.1 Hypo-osmolality and hyponatremia; I50.32 Chronic diastolic (congestive) heart failure; E78.5 Hyperlipidemia, unspecified; I35.0 Nonrheumatic aortic (valve) stenosis; D63.1 Anemia in chronic kidney disease; E66.01 Morbid (severe) obesity due to excess calories; Z88.8 Allergy status to other drugs, medicaments and biological substances; Z88.5 Allergy status to narcotic agent; Z99.2 Dependence on renal dialysis; Z79.899 Other long term (current) drug therapy; Z79.4 Long term (current) use of insulin; Z79.84 Long term (current) use of oral hypoglycemic drugs; Z90.49 Acquired absence of other specified parts of digestive tract; Z90.710 Acquired absence of both cervix and uterus
CPT/HCPCS: 36415; 36416; 51701; 71045; 74176; 80048; 80053; 81001; 83735; 83880; 84100; 84484; 85025; 87040; 87086; 87324; 87449; 87493; 90935; 93005; 93306; 96365; 96375; G0257; J0696; J1644; J1940; J3490

== ENCOUNTER 2024-03-24 09:14 | Inpatient (IN) | payer OTHER ==
[2024-03-24 10:06] LABS: #Basophils Less than 0.03 10x3/uL (0.0-0.2); %Basophils 0.2 % (0.0-1.0); %Lymphocytes 9.6 % (21.0-51.0); %Monocytes 7.2 % (0.0-10.0); %Neutrophils 81.4 % (42.0-75.0); Hematocrit 39.2 % (36.0-47.0); Hemoglobin 12.1 g/dL (12.0-16.0); Mean Corpuscular HGB CONC 30.9 g/dL (32.0-36.0); Mean Corpuscular Hemoglobin 32.7 pg (27.0-31.0); Mean Corpuscular Volume 105.9 fL (78.0-98.0); Mean Platelet Volume 9.5 fL (7.4-10.4); Platelet Count 180 10x3/uL (130-400); RBC Distribution Width 15.4 % (11.5-14.5)
[2024-03-24 10:33] LABS: ALT (SGPT) 6 U/L (8-55); AST (SGOT) 24 U/L (5-34); Albumin 2.3 g/dL (3.4-4.8); Alkaline Phosphatase 182 U/L (40-110); Anion Gap 18 mmol/L (10-20); BUN (Urea Nitrogen) 47 mg/dL (9.8-20.1); Bilirubin, Total 0.6 mg/dL (0.2-1.2); CK (CPK) 31 U/L (29-168); Calc. Creatinine Clearance 0 mL/min (70-130); Carbon Dioxide 20 mmol/L (23-31); Chloride 101 mmol/L (98-107); Estimated GFR 7; Globulin 3.5 g/dL (2.4-3.5); Glucose 108 mg/dL (83-110); Lipase 4 U/L (8-78); Potassium 4.8 mmol/L (3.5-5.1); Protein, Total 5.8 g/dL (5.8-8.1); Sodium 134 mmol/L (136-145)
[2024-03-24 10:36] LABS: Troponin I 0.024 ng/mL (< 0.028)
[2024-03-24] MEDS ORDERED: Sodium Chloride 0.9% 100 ML ONE (14:43)
[2024-03-24] MEDS ORDERED: Cefepime 2 GM VIAL ONE (14:43)
[2024-03-24] MEDS ORDERED: Vancomycin HCl 500 MG VIAL ONE (14:43)
[2024-03-24] MEDS ORDERED: Senokot S 8.6-50 MG TAB PO PRN (15:17)
[2024-03-24] MEDS: Carvedilol 3.125 MG TAB PO SCH (18:15)
[2024-03-24] MEDS: Sevelamer Carbonate 800 MG TAB PO SCH (18:15)
[2024-03-24] MEDS: Vancomycin (BATCH) 1.75 GM in Premix 1 BAG IVPB SCH (18:48)
[2024-03-24 19:24] VITALS: BMI 38.5
[2024-03-24] MEDS ORDERED: Vancomycin Diaylsis Sliding Scale (Wt 71-99) FS SCH (20:15)
[2024-03-24] MEDS: Gabapentin 300 MG CAP PO SCH (22:12)
[2024-03-24] MEDS: Rosuvastatin 10 MG TAB PO SCH (22:13)
[2024-03-24] MEDS: Heparin 5,000 UNITS/ML VIAL SC SCH (22:13)
[2024-03-24] MEDS: Insulin Glargine 30 UNITS/0.3 ML VIAL SC SCH (22:13)
[2024-03-25 04:38] LABS: #Basophils 0.03 10x3/uL (0.0-0.2); %Basophils 0.3 % (0.0-1.0); %Eosinophils 1.4 % (0.0-10.0); %Lymphocytes 10.8 % (21.0-51.0); %Monocytes 9.1 % (0.0-10.0); %Neutrophils 77.8 % (42.0-75.0); Hematocrit 34.6 % (36.0-47.0); Hemoglobin 10.9 g/dL (12.0-16.0); Mean Corpuscular HGB CONC 31.5 g/dL (32.0-36.0); Mean Corpuscular Hemoglobin 31.9 pg (27.0-31.0); Mean Corpuscular Volume 101.2 fL (78.0-98.0); Mean Platelet Volume 9.6 fL (7.4-10.4); Platelet Count 157 10x3/uL (130-400); RBC Distribution Width 15.1 % (11.5-14.5); Red Blood Cell (RBC) Count 3.42 mill/uL (4.20-5.40)
[2024-03-25 05:06] LABS: ALT (SGPT) 7 U/L (8-55); AST (SGOT) 17 U/L (5-34); Alkaline Phosphatase 166 U/L (40-110); Anion Gap 15 mmol/L (10-20); BUN (Urea Nitrogen) 52 mg/dL (9.8-20.1); Bilirubin, Total 0.5 mg/dL (0.2-1.2); Calc. Creatinine Clearance 11 mL/min (70-130); Calcium 8.3 mg/dL (7.8-10.44); Carbon Dioxide 20 mmol/L (23-31); Chloride 104 mmol/L (98-107); Estimated GFR 6; Globulin 2.6 g/dL (2.4-3.5); Glucose 96 mg/dL (83-110); Potassium 4.7 mmol/L (3.5-5.1); Protein, Total 4.6 g/dL (5.8-8.1); Sodium 134 mmol/L (136-145)
[2024-03-25 07:18] LABS: Vancomycin, Random 9.9 ug/mL (See Comment)
[2024-03-25] MEDS: Loratadine 10 MG TAB PO SCH (08:36)
[2024-03-25] MEDS: Aspirin 81 mg Enteric Coated Tablet PO SCH (08:36)
[2024-03-25] MEDS: Pantoprazole DR 40 MG TAB PO SCH (08:36)
[2024-03-25] MEDS: Clopidogrel Bisulfate 75 MG TAB PO SCH (08:36)
[2024-03-25] MEDS: Sertraline 100 MG TAB PO SCH (08:36)
[2024-03-25] MEDS ORDERED: Heparin 10,000 UNITS/ 10 ML VIAL ONE (09:08)
[2024-03-25] MEDS ORDERED: Cefepime 1 GM in Sodium Chloride 0.9% 100 ML IVPB SCH (14:00)
[2024-03-25] MEDS: Cefepime 1 GM in Sodium Chloride 0.9% 100 ML IVPB SCH (16:13)
[2024-03-25 17:47] VITALS: BMI 38.5
[2024-03-25] MEDS: Vancomycin (BATCH) 1.25 GM in Premix 1 BAG IVPB SCH (18:11)
[2024-03-26 04:40] LABS: #Basophils Less than 0.03 10x3/uL (0.0-0.2); %Basophils 0.2 % (0.0-1.0); %Eosinophils 1.2 % (0.0-10.0); %Lymphocytes 8.9 % (21.0-51.0); %Neutrophils 79.9 % (42.0-75.0); Hematocrit 35.8 % (36.0-47.0); Hemoglobin 11.5 g/dL (12.0-16.0); Mean Corpuscular HGB CONC 32.1 g/dL (32.0-36.0); Mean Corpuscular Hemoglobin 32.9 pg (27.0-31.0); Mean Corpuscular Volume 102.3 fL (78.0-98.0); Mean Platelet Volume 9.6 fL (7.4-10.4); Platelet Count 194 10x3/uL (130-400); RBC Distribution Width 15.2 % (11.5-14.5)
[2024-03-26 04:53] LABS: ALT (SGPT) 5 U/L (8-55); AST (SGOT) 14 U/L (5-34); Albumin 2.1 g/dL (3.4-4.8); Alkaline Phosphatase 164 U/L (40-110); Anion Gap 16 mmol/L (10-20); BUN (Urea Nitrogen) 36 mg/dL (9.8-20.1); Bilirubin, Total 0.6 mg/dL (0.2-1.2); Calc. Creatinine Clearance 14 mL/min (70-130); Calcium 8.8 mg/dL (7.8-10.44); Carbon Dioxide 23 mmol/L (23-31); Chloride 101 mmol/L (98-107); Estimated GFR 8; Globulin 3.5 g/dL (2.4-3.5); Glucose 57 mg/dL (83-110); Potassium 3.9 mmol/L (3.5-5.1); Protein, Total 5.6 g/dL (5.8-8.1); Sodium 136 mmol/L (136-145)
[2024-03-26] MEDS ORDERED: PROPOFOL 20 ML ONE (13:12)
[2024-03-26] MEDS ORDERED: Ketamine In 0.9 % NaCl 50 MG/5 ML SYRINGE ONE (13:12)
[2024-03-26] MEDS ORDERED: fentaNYL 50 mcg/mL 1 mL Vial ONE (13:12)
[2024-03-26] MEDS ORDERED: ePHEDrine Sulfate 50 MG/10 ML VIAL ONE (13:34)
[2024-03-26] MEDS ORDERED: Ondansetron PF 4 MG/2 ML Vial ONE (13:50)
[2024-03-26] MEDS ORDERED: Lidocaine 1% PF 5 ML VIAL ONE (13:50)
[2024-03-26] MEDS ORDERED: PHENYLEPHRINE-NS 100 MCG/ML 10 ML SYRINGE ONE (14:00)
[2024-03-26] MEDS ORDERED: Non-Formulary Medication 1 EACH PO PRN (14:40)
[2024-03-26] MEDS ORDERED: Promethazine HCl 25 MG/ML VIAL IM PRN (14:45)
[2024-03-26] MEDS ORDERED: Ondansetron HCl/PF 4 MG/2 ML Vial IVP PRN (14:45)
[2024-03-26] MEDS: Acetaminophen 325 MG TAB PO PRN (17:31)
[2024-03-26] MEDS: Cyclobenzaprine 10 MG TAB PO PRN (17:32)
[2024-03-26] MEDS: Morphine 2 MG/ML VIAL SLOW IVP PRN (18:43)
[2024-03-27 04:18] LABS: #Basophils Less than 0.03 10x3/uL (0.0-0.2); %Basophils 0.1 % (0.0-1.0); %Eosinophils 1.1 % (0.0-10.0); %Monocytes 8.9 % (0.0-10.0); %Neutrophils 79.3 % (42.0-75.0); Hematocrit 34.6 % (36.0-47.0); Hemoglobin 11.1 g/dL (12.0-16.0); Mean Corpuscular HGB CONC 32.1 g/dL (32.0-36.0); Mean Corpuscular Hemoglobin 32.6 pg (27.0-31.0); Mean Corpuscular Volume 101.5 fL (78.0-98.0); Mean Platelet Volume 9.6 fL (7.4-10.4); Platelet Count 154 10x3/uL (130-400); RBC Distribution Width 15.2 % (11.5-14.5); Red Blood Cell (RBC) Count 3.41 mill/uL (4.20-5.40)
[2024-03-27 04:54] LABS: Anion Gap 14 mmol/L (10-20); BUN (Urea Nitrogen) 22 mg/dL (9.8-20.1); Calc. Creatinine Clearance 19 mL/min (70-130); Calcium 8.4 mg/dL (7.8-10.44); Carbon Dioxide 24 mmol/L (23-31); Chloride 100 mmol/L (98-107); Estimated GFR 12; Glucose 136 mg/dL (83-110); Potassium 3.6 mmol/L (3.5-5.1); Sodium 134 mmol/L (136-145)
[2024-03-27 07:43] LABS: Vancomycin, Trough 13.7 ug/mL
[2024-03-27] MEDS: Loratadine 10 MG TAB PO SCH (09:02)
[2024-03-27] MEDS: Vancomycin 1 GM in Premix 1 BAG IVPB SCH (13:29)
[2024-03-27] MEDS: Morphine 4 MG/ML VIAL SLOW IVP PRN (20:29)
[2024-03-28 04:58] LABS: #Basophils 0.07 10x3/uL (0.0-0.2); %Basophils 0.7 % (0.0-1.0); %Eosinophils 2.1 % (0.0-10.0); %Lymphocytes 12.8 % (21.0-51.0); %Monocytes 8.9 % (0.0-10.0); %Neutrophils 73.8 % (42.0-75.0); Hematocrit 37.7 % (36.0-47.0); Hemoglobin 11.7 g/dL (12.0-16.0); Mean Corpuscular Hemoglobin 32.1 pg (27.0-31.0); Mean Corpuscular Volume 103.3 fL (78.0-98.0); Mean Platelet Volume 10.4 fL (7.4-10.4); Platelet Count 142 10x3/uL (130-400); RBC Distribution Width 15.3 % (11.5-14.5); Red Blood Cell (RBC) Count 3.65 mill/uL (4.20-5.40)
[2024-03-28 05:01] LABS: Anion Gap 18 mmol/L (10-20); BUN (Urea Nitrogen) 28 mg/dL (9.8-20.1); Calc. Creatinine Clearance 17 mL/min (70-130); Calcium 8.3 mg/dL (7.8-10.44); Carbon Dioxide 20 mmol/L (23-31); Chloride 100 mmol/L (98-107); Estimated GFR 10; Glucose 77 mg/dL (83-110); Potassium 4.7 mmol/L (3.5-5.1); Sodium 133 mmol/L (136-145)
[2024-03-28] MEDS: cefTRIAXone\\ROCEPHIN 2 GM in Sodium Chloride 0.9% 100 ML IVPB SCH (18:28)
[2024-03-29 07:05] LABS: #Basophils Less than 0.03 10x3/uL (0.0-0.2); %Basophils 0.2 % (0.0-1.0); %Eosinophils 1.3 % (0.0-10.0); %Lymphocytes 14.6 % (21.0-51.0); %Monocytes 10.3 % (0.0-10.0); %Neutrophils 72.9 % (42.0-75.0); Hematocrit 32.9 % (36.0-47.0); Hemoglobin 10.2 g/dL (12.0-16.0); Mean Corpuscular Hemoglobin 32.7 pg (27.0-31.0); Mean Corpuscular Volume 105.4 fL (78.0-98.0); Mean Platelet Volume 9.7 fL (7.4-10.4); Platelet Count 147 10x3/uL (130-400); RBC Distribution Width 15.1 % (11.5-14.5); Red Blood Cell (RBC) Count 3.12 mill/uL (4.20-5.40)
[2024-03-29 07:32] LABS: ALT (SGPT) 7 U/L (8-55); AST (SGOT) 12 U/L (5-34); Albumin 1.9 g/dL (3.4-4.8); Alkaline Phosphatase 150 U/L (40-110); Anion Gap 11 mmol/L (10-20); BUN (Urea Nitrogen) 20 mg/dL (9.8-20.1); Bilirubin, Total 0.4 mg/dL (0.2-1.2); Calc. Creatinine Clearance 21 mL/min (70-130); Carbon Dioxide 27 mmol/L (23-31); Chloride 100 mmol/L (98-107); Estimated GFR 14; Glucose 87 mg/dL (83-110); Potassium 3.3 mmol/L (3.5-5.1); Protein, Total 4.9 g/dL (5.8-8.1); Sodium 135 mmol/L (136-145)
[2024-03-30 05:17] LABS: #Basophils 0.04 10x3/uL (0.0-0.2); %Basophils 0.4 % (0.0-1.0); %Eosinophils 1.5 % (0.0-10.0); %Lymphocytes 14.4 % (21.0-51.0); %Neutrophils 73.8 % (42.0-75.0); Hematocrit 34.2 % (36.0-47.0); Hemoglobin 10.7 g/dL (12.0-16.0); Mean Corpuscular HGB CONC 31.3 g/dL (32.0-36.0); Mean Corpuscular Hemoglobin 31.8 pg (27.0-31.0); Mean Corpuscular Volume 101.8 fL (78.0-98.0); Mean Platelet Volume 9.9 fL (7.4-10.4); Platelet Count 164 10x3/uL (130-400); RBC Distribution Width 14.9 % (11.5-14.5); Red Blood Cell (RBC) Count 3.36 mill/uL (4.20-5.40)
[2024-03-30 05:37] LABS: ALT (SGPT) Less than 5 U/L (8-55); AST (SGOT) 12 U/L (5-34); Albumin 1.9 g/dL (3.4-4.8); Alkaline Phosphatase 145 U/L (40-110); Anion Gap 13 mmol/L (10-20); BUN (Urea Nitrogen) 28 mg/dL (9.8-20.1); Bilirubin, Total 0.5 mg/dL (0.2-1.2); Calc. Creatinine Clearance 17 mL/min (70-130); Calcium 8.3 mg/dL (7.8-10.44); Carbon Dioxide 26 mmol/L (23-31); Chloride 99 mmol/L (98-107); Estimated GFR 11; Globulin 3.2 g/dL (2.4-3.5); Glucose 78 mg/dL (83-110); Potassium 3.2 mmol/L (3.5-5.1); Protein, Total 5.1 g/dL (5.8-8.1); Sodium 135 mmol/L (136-145)
[2024-03-30] MEDS: Floranex 1 GM Packet PO SCH (20:38)
[2024-03-30] MEDS: metroNIDAZOLE 500 MG TAB PO SCH (20:43)
[2024-03-30] MEDS ORDERED: metroNIDAZOLE 500 MG TAB PO SCH (21:00)
[2024-03-31 00:38] LABS: #Basophils 0.03 10x3/uL (0.0-0.2); %Basophils 0.3 % (0.0-1.0); %Eosinophils 1.1 % (0.0-10.0); %Lymphocytes 11.9 % (21.0-51.0); %Monocytes 8.1 % (0.0-10.0); %Neutrophils 77.8 % (42.0-75.0); Hematocrit 40.8 % (36.0-47.0); Hemoglobin 12.5 g/dL (12.0-16.0); Mean Corpuscular HGB CONC 30.6 g/dL (32.0-36.0); Mean Corpuscular Hemoglobin 32.6 pg (27.0-31.0); Mean Corpuscular Volume 106.3 fL (78.0-98.0); Mean Platelet Volume 9.5 fL (7.4-10.4); Platelet Count 155 10x3/uL (130-400); RBC Distribution Width 15.1 % (11.5-14.5); Red Blood Cell (RBC) Count 3.84 mill/uL (4.20-5.40)
[2024-03-31 00:42] LABS: Anion Gap 16 mmol/L (10-20); BUN (Urea Nitrogen) 33 mg/dL (9.8-20.1); Calc. Creatinine Clearance 15 mL/min (70-130); Calcium 8.9 mg/dL (7.8-10.44); Carbon Dioxide 23 mmol/L (23-31); Chloride 97 mmol/L (98-107); Estimated GFR 9; Glucose 90 mg/dL (83-110); Phosphorus 2.9 mg/dL (2.3-4.7); Potassium 3.5 mmol/L (3.5-5.1); Sodium 132 mmol/L (136-145)
[2024-03-31] MEDS: Lorazepam 2 MG/ML VIAL SLOW IVP SCH (03:26)
[2024-03-31 05:17] LABS: ALT (SGPT) Less than 5 U/L (8-55); AST (SGOT) 15 U/L (5-34); Albumin 1.9 g/dL (3.4-4.8); Alkaline Phosphatase 151 U/L (40-110); Anion Gap 13 mmol/L (10-20); BUN (Urea Nitrogen) 34 mg/dL (9.8-20.1); Bilirubin, Total 0.4 mg/dL (0.2-1.2); Calc. Creatinine Clearance 15 mL/min (70-130); Calcium 8.5 mg/dL (7.8-10.44); Carbon Dioxide 23 mmol/L (23-31); Chloride 98 mmol/L (98-107); Estimated GFR 9; Globulin 3.5 g/dL (2.4-3.5); Glucose 80 mg/dL (83-110); Potassium 3.7 mmol/L (3.5-5.1); Protein, Total 5.4 g/dL (5.8-8.1); Sodium 130 mmol/L (136-145)
[2024-03-31 06:11] LABS: #Basophils Less than 0.03 10x3/uL (0.0-0.2); %Basophils 0.2 % (0.0-1.0); %Eosinophils 1.4 % (0.0-10.0); %Lymphocytes 13.5 % (21.0-51.0); %Monocytes 9.1 % (0.0-10.0); %Neutrophils 74.9 % (42.0-75.0); Hematocrit 33.5 % (36.0-47.0); Hemoglobin 10.5 g/dL (12.0-16.0); Mean Corpuscular HGB CONC 31.3 g/dL (32.0-36.0); Mean Corpuscular Hemoglobin 32.6 pg (27.0-31.0); Mean Platelet Volume 9.3 fL (7.4-10.4); Platelet Count 149 10x3/uL (130-400); RBC Distribution Width 14.9 % (11.5-14.5); Red Blood Cell (RBC) Count 3.22 mill/uL (4.20-5.40)
[2024-03-31] MEDS ORDERED: Heparin 10,000 UNITS/ 10 ML VIAL ONE (08:39)
[2024-03-31 11:20] LABS: Troponin I 0.019 ng/mL (< 0.028)
[2024-03-31 19:33] LABS: Troponin I 0.021 ng/mL (< 0.028)
[2024-04-01 04:38] LABS: #Basophils Less than 0.03 10x3/uL (0.0-0.2); %Basophils 0.2 % (0.0-1.0); %Eosinophils 0.8 % (0.0-10.0); %Lymphocytes 10.4 % (21.0-51.0); %Monocytes 9.1 % (0.0-10.0); %Neutrophils 78.4 % (42.0-75.0); Hematocrit 33.2 % (36.0-47.0); Hemoglobin 10.4 g/dL (12.0-16.0); Mean Corpuscular HGB CONC 31.3 g/dL (32.0-36.0); Mean Corpuscular Hemoglobin 32.5 pg (27.0-31.0); Mean Corpuscular Volume 103.8 fL (78.0-98.0); Mean Platelet Volume 9.9 fL (7.4-10.4); Platelet Count 159 10x3/uL (130-400)
[2024-04-01 05:01] LABS: ALT (SGPT) Less than 5 U/L (8-55); AST (SGOT) 11 U/L (5-34); Albumin 1.9 g/dL (3.4-4.8); Alkaline Phosphatase 142 U/L (40-110); Anion Gap 9 mmol/L (10-20); BUN (Urea Nitrogen) 18 mg/dL (9.8-20.1); Bilirubin, Total 0.4 mg/dL (0.2-1.2); Calc. Creatinine Clearance 22 mL/min (70-130); Calcium 8.3 mg/dL (7.8-10.44); Carbon Dioxide 30 mmol/L (23-31); Chloride 97 mmol/L (98-107); Estimated GFR 14; Glucose 100 mg/dL (83-110); Magnesium 1.8 mg/dL (1.6-2.6); Protein, Total 4.9 g/dL (5.8-8.1); Sodium 133 mmol/L (136-145)
[2024-04-02] MEDS: Loperamide HCl 2 MG CAP PO SCH (01:03)
[2024-04-02 06:11] LABS: #Basophils Less than 0.03 10x3/uL (0.0-0.2); %Basophils 0.2 % (0.0-1.0); %Lymphocytes 10.5 % (21.0-51.0); %Monocytes 7.9 % (0.0-10.0); %Neutrophils 79.5 % (42.0-75.0); Hematocrit 35.4 % (36.0-47.0); Hemoglobin 11.4 g/dL (12.0-16.0); Mean Corpuscular HGB CONC 32.2 g/dL (32.0-36.0); Mean Corpuscular Hemoglobin 32.2 pg (27.0-31.0); Mean Platelet Volume 10.1 fL (7.4-10.4); Platelet Count 131 10x3/uL (130-400); RBC Distribution Width 14.6 % (11.5-14.5); Red Blood Cell (RBC) Count 3.54 mill/uL (4.20-5.40)
[2024-04-02 09:18] LABS: ALT (SGPT) Less than 5 U/L (8-55); AST (SGOT) 13 U/L (5-34); Albumin 1.9 g/dL (3.4-4.8); Alkaline Phosphatase 151 U/L (40-110); Anion Gap 11 mmol/L (10-20); BUN (Urea Nitrogen) 26 mg/dL (9.8-20.1); Bilirubin, Total 0.5 mg/dL (0.2-1.2); Calc. Creatinine Clearance 18 mL/min (70-130); Calcium 8.4 mg/dL (7.8-10.44); Carbon Dioxide 26 mmol/L (23-31); Chloride 101 mmol/L (98-107); Estimated GFR 11; Globulin 3.1 g/dL (2.4-3.5); Glucose 82 mg/dL (83-110); Potassium 3.4 mmol/L (3.5-5.1); Sodium 135 mmol/L (136-145)
[2024-04-02 09:46] LABS: Troponin I 0.035 ng/mL (< 0.028)
[2024-04-02] MEDS ORDERED: Heparin 10,000 UNITS/ 10 ML VIAL ONE (11:11)
[2024-04-03 05:19] LABS: ALT (SGPT) 5 U/L (8-55); AST (SGOT) 13 U/L (5-34); Albumin 2.1 g/dL (3.4-4.8); Alkaline Phosphatase 157 U/L (40-110); Anion Gap 16 mmol/L (10-20); BUN (Urea Nitrogen) 13 mg/dL (9.8-20.1); Bilirubin, Total 0.5 mg/dL (0.2-1.2); Calc. Creatinine Clearance 26 mL/min (70-130); Calcium 8.4 mg/dL (7.8-10.44); Carbon Dioxide 23 mmol/L (23-31); Chloride 100 mmol/L (98-107); Estimated GFR 18; Globulin 3.6 g/dL (2.4-3.5); Glucose 115 mg/dL (83-110); Protein, Total 5.7 g/dL (5.8-8.1); Sodium 136 mmol/L (136-145)
[2024-04-03 07:04] LABS: #Basophils 0.03 10x3/uL (0.0-0.2); %Basophils 0.3 % (0.0-1.0); %Eosinophils 1.4 % (0.0-10.0); %Lymphocytes 9.4 % (21.0-51.0); %Monocytes 9.1 % (0.0-10.0); %Neutrophils 78.6 % (42.0-75.0); Hematocrit 38.9 % (36.0-47.0); Hemoglobin 12.5 g/dL (12.0-16.0); Mean Corpuscular HGB CONC 32.1 g/dL (32.0-36.0); Mean Corpuscular Hemoglobin 32.3 pg (27.0-31.0); Mean Corpuscular Volume 100.5 fL (78.0-98.0); Platelet Count 140 10x3/uL (130-400); RBC Distribution Width 14.8 % (11.5-14.5); Red Blood Cell (RBC) Count 3.87 mill/uL (4.20-5.40)
[2024-04-03] MEDS ORDERED: Pantoprazole DR 40 MG TAB PO SCH (10:45)
[2024-04-03] MEDS: Pantoprazole DR 40 MG TAB PO SCH (11:52)
[2024-04-03] MEDS: Ondansetron PF 4 MG/2 ML Vial IVP PRN (21:03)
[2024-04-04 05:36] LABS: ALT (SGPT) 6 U/L (8-55); AST (SGOT) 16 U/L (5-34); Albumin 2.1 g/dL (3.4-4.8); Alkaline Phosphatase 169 U/L (40-110); Anion Gap 17 mmol/L (10-20); BUN (Urea Nitrogen) 17 mg/dL (9.8-20.1); Bilirubin, Total 0.5 mg/dL (0.2-1.2); Calc. Creatinine Clearance 20 mL/min (70-130); Calcium 8.4 mg/dL (7.8-10.44); Carbon Dioxide 21 mmol/L (23-31); Chloride 101 mmol/L (98-107); Estimated GFR 13; Globulin 3.5 g/dL (2.4-3.5); Glucose 84 mg/dL (83-110); Potassium 3.1 mmol/L (3.5-5.1); Protein, Total 5.6 g/dL (5.8-8.1); Sodium 136 mmol/L (136-145)
[2024-04-04 05:44] LABS: #Basophils 0.03 10x3/uL (0.0-0.2); %Basophils 0.2 % (0.0-1.0); %Eosinophils 1.2 % (0.0-10.0); %Lymphocytes 11.6 % (21.0-51.0); %Monocytes 8.3 % (0.0-10.0); %Neutrophils 77.5 % (42.0-75.0); Hematocrit 35.1 % (36.0-47.0); Mean Corpuscular HGB CONC 31.3 g/dL (32.0-36.0); Mean Corpuscular Hemoglobin 31.7 pg (27.0-31.0); Mean Corpuscular Volume 101.2 fL (78.0-98.0); Mean Platelet Volume 9.9 fL (7.4-10.4); Platelet Count 171 10x3/uL (130-400); RBC Distribution Width 15.1 % (11.5-14.5); Red Blood Cell (RBC) Count 3.47 mill/uL (4.20-5.40)
[2024-04-04] MEDS ORDERED: Potassium Chloride 20 MEQ TAB PO SCH (08:00)
[2024-04-04] MEDS ORDERED: NOREPINEPHRINE 8 MG/250 ML-D5W 250 ML ONE (08:02)
[2024-04-04] MEDS ORDERED: PROPOFOL 20 ML ONE (08:18)
[2024-04-04] MEDS ORDERED: fentaNYL PF 100 MCG/2 ML SYRINGE ONE (08:18)
[2024-04-04] MEDS ORDERED: Lidocaine 2% PF 5 ML VIAL ONE (08:18)
[2024-04-04] MEDS ORDERED: Potassium Chloride 10 MEQ/100 ML PREMIX BAG ONE (08:22)
[2024-04-04] MEDS ORDERED: Etomidate 40 MG (20 mL) VIAL ONE (08:22)
[2024-04-04] MEDS ORDERED: Rocuronium Bromide 10 MG/ML (10ML VIAL) ONE (08:29)
[2024-04-04] MEDS ORDERED: SUGAMMADEX SODIUM 200 MG/2 ML VIAL ONE (09:09)
[2024-04-04] MEDS ORDERED: Promethazine HCl 25 MG/ML VIAL IM PRN (09:17)
[2024-04-04] MEDS ORDERED: Ondansetron HCl/PF 4 MG/2 ML Vial IVP PRN (09:17)
[2024-04-04] MEDS: Potassium Chloride 20 MEQ TAB PO SCH (10:18)
[2024-04-05 04:51] LABS: #Basophils 0.03 10x3/uL (0.0-0.2); %Basophils 0.2 % (0.0-1.0); %Eosinophils 0.7 % (0.0-10.0); %Lymphocytes 5.3 % (21.0-51.0); %Monocytes 5.9 % (0.0-10.0); %Neutrophils 87.2 % (42.0-75.0); Hematocrit 36.3 % (36.0-47.0); Hemoglobin 11.3 g/dL (12.0-16.0); Mean Corpuscular HGB CONC 31.1 g/dL (32.0-36.0); Mean Corpuscular Hemoglobin 31.7 pg (27.0-31.0); Mean Platelet Volume 9.9 fL (7.4-10.4); Platelet Count 160 10x3/uL (130-400); Red Blood Cell (RBC) Count 3.56 mill/uL (4.20-5.40)
[2024-04-05 05:20] LABS: ALT (SGPT) Less than 5 U/L (8-55); AST (SGOT) 21 U/L (5-34); Albumin 2.2 g/dL (3.4-4.8); Alkaline Phosphatase 188 U/L (40-110); Anion Gap 12 mmol/L (10-20); BUN (Urea Nitrogen) 8 mg/dL (9.8-20.1); Bilirubin, Total 0.5 mg/dL (0.2-1.2); Calc. Creatinine Clearance 33 mL/min (70-130); Calcium 8.5 mg/dL (7.8-10.44); Carbon Dioxide 28 mmol/L (23-31); Chloride 100 mmol/L (98-107); Estimated GFR 23; Globulin 3.5 g/dL (2.4-3.5); Glucose 82 mg/dL (83-110); Potassium 3.5 mmol/L (3.5-5.1); Protein, Total 5.7 g/dL (5.8-8.1); Sodium 136 mmol/L (136-145)
[2024-04-06 10:26] LABS: #Basophils Less than 0.03 10x3/uL (0.0-0.2); %Basophils 0.2 % (0.0-1.0); %Lymphocytes 7.4 % (21.0-51.0); %Monocytes 8.4 % (0.0-10.0); %Neutrophils 82.2 % (42.0-75.0); Hematocrit 36.1 % (36.0-47.0); Hemoglobin 11.3 g/dL (12.0-16.0); Mean Corpuscular HGB CONC 31.3 g/dL (32.0-36.0); Mean Corpuscular Hemoglobin 33.1 pg (27.0-31.0); Mean Corpuscular Volume 105.9 fL (78.0-98.0); Mean Platelet Volume 9.6 fL (7.4-10.4); Platelet Count 154 10x3/uL (130-400); RBC Distribution Width 15.8 % (11.5-14.5); Red Blood Cell (RBC) Count 3.41 mill/uL (4.20-5.40)
[2024-04-06 10:41] LABS: ALT (SGPT) 6 U/L (8-55); AST (SGOT) 14 U/L (5-34); Albumin 2.2 g/dL (3.4-4.8); Alkaline Phosphatase 176 U/L (40-110); Anion Gap 14 mmol/L (10-20); BUN (Urea Nitrogen) 14 mg/dL (9.8-20.1); Bilirubin, Total 0.5 mg/dL (0.2-1.2); Calc. Creatinine Clearance 22 mL/min (70-130); Calcium 8.8 mg/dL (7.8-10.44); Carbon Dioxide 27 mmol/L (23-31); Chloride 99 mmol/L (98-107); Estimated GFR 14; Globulin 3.5 g/dL (2.4-3.5); Glucose 107 mg/dL (83-110); Potassium 3.5 mmol/L (3.5-5.1); Protein, Total 5.7 g/dL (5.8-8.1); Sodium 136 mmol/L (136-145)
[2024-04-07 04:52] LABS: #Basophils Less than 0.03 10x3/uL (0.0-0.2); %Basophils 0.1 % (0.0-1.0); %Eosinophils 1.6 % (0.0-10.0); %Lymphocytes 12.6 % (21.0-51.0); %Neutrophils 74.9 % (42.0-75.0); Hematocrit 31.6 % (36.0-47.0); Hemoglobin 9.9 g/dL (12.0-16.0); Mean Corpuscular HGB CONC 31.3 g/dL (32.0-36.0); Mean Corpuscular Hemoglobin 32.6 pg (27.0-31.0); Mean Corpuscular Volume 103.9 fL (78.0-98.0); Mean Platelet Volume 9.8 fL (7.4-10.4); Platelet Count 146 10x3/uL (130-400); RBC Distribution Width 15.9 % (11.5-14.5); Red Blood Cell (RBC) Count 3.04 mill/uL (4.20-5.40)
[2024-04-07 05:48] LABS: ALT (SGPT) Less than 5 U/L (8-55); AST (SGOT) 12 U/L (5-34); Albumin 1.9 g/dL (3.4-4.8); Alkaline Phosphatase 131 U/L (40-110); Anion Gap 12 mmol/L (10-20); BUN (Urea Nitrogen) 18 mg/dL (9.8-20.1); Bilirubin, Total 0.5 mg/dL (0.2-1.2); Calc. Creatinine Clearance 19 mL/min (70-130); Calcium 8.8 mg/dL (7.8-10.44); Carbon Dioxide 26 mmol/L (23-31); Chloride 101 mmol/L (98-107); Estimated GFR 12; Globulin 2.8 g/dL (2.4-3.5); Glucose 74 mg/dL (83-110); Potassium 3.5 mmol/L (3.5-5.1); Protein, Total 4.7 g/dL (5.8-8.1); Sodium 135 mmol/L (136-145)
[2024-04-07] MEDS ORDERED: Heparin 10,000 UNITS/ 10 ML VIAL ONE (09:54)
[2024-04-08 04:26] LABS: #Basophils Less than 0.03 10x3/uL (0.0-0.2); %Basophils 0.2 % (0.0-1.0); %Eosinophils 1.4 % (0.0-10.0); %Lymphocytes 11.3 % (21.0-51.0); %Monocytes 8.9 % (0.0-10.0); %Neutrophils 77.6 % (42.0-75.0); Hemoglobin 10.1 g/dL (12.0-16.0); Mean Corpuscular HGB CONC 31.6 g/dL (32.0-36.0); Mean Corpuscular Hemoglobin 33.2 pg (27.0-31.0); Mean Corpuscular Volume 105.3 fL (78.0-98.0); Mean Platelet Volume 10.2 fL (7.4-10.4); Platelet Count 146 10x3/uL (130-400); RBC Distribution Width 16.1 % (11.5-14.5); Red Blood Cell (RBC) Count 3.04 mill/uL (4.20-5.40)
[2024-04-08 04:50] LABS: Anion Gap 16 mmol/L (10-20); BUN (Urea Nitrogen) 9 mg/dL (9.8-20.1); Calc. Creatinine Clearance 30 mL/min (70-130); Carbon Dioxide 25 mmol/L (23-31); Chloride 98 mmol/L (98-107); Estimated GFR 21; Glucose 72 mg/dL (83-110); Potassium 4.1 mmol/L (3.5-5.1); Sodium 135 mmol/L (136-145)
[2024-04-08] MEDS: cefTRIAXone\\ROCEPHIN 2 GM in Sodium Chloride 0.9% 100 ML IVPB SCH (15:47)
[2024-04-10 05:34] LABS: #Basophils 0.03 10x3/uL (0.0-0.2); %Basophils 0.2 % (0.0-1.0); %Eosinophils 1.1 % (0.0-10.0); %Lymphocytes 9.4 % (21.0-51.0); %Monocytes 8.8 % (0.0-10.0); %Neutrophils 79.9 % (42.0-75.0); Hematocrit 31.5 % (36.0-47.0); Hemoglobin 9.9 g/dL (12.0-16.0); Mean Corpuscular HGB CONC 31.4 g/dL (32.0-36.0); Mean Corpuscular Hemoglobin 32.4 pg (27.0-31.0); Mean Corpuscular Volume 102.9 fL (78.0-98.0); Mean Platelet Volume 9.9 fL (7.4-10.4); Platelet Count 144 10x3/uL (130-400); RBC Distribution Width 16.3 % (11.5-14.5); Red Blood Cell (RBC) Count 3.06 mill/uL (4.20-5.40)
[2024-04-10 05:52] LABS: Anion Gap 7 mmol/L (10-20); BUN (Urea Nitrogen) 8 mg/dL (9.8-20.1); Calc. Creatinine Clearance 36 mL/min (70-130); Calcium 7.9 mg/dL (7.8-10.44); Carbon Dioxide 29 mmol/L (23-31); Chloride 99 mmol/L (98-107); Estimated GFR 26; Glucose 55 mg/dL (83-110); Sodium 132 mmol/L (136-145)
[2024-04-10] MEDS: Dextrose 50% Abboject 50 ML SYRINGE SLOW IVP SCH (11:01)
[2024-04-11 05:42] LABS: Anion Gap 11 mmol/L (10-20); BUN (Urea Nitrogen) 13 mg/dL (9.8-20.1); Calc. Creatinine Clearance 25 mL/min (70-130); Calcium 8.1 mg/dL (7.8-10.44); Carbon Dioxide 26 mmol/L (23-31); Chloride 97 mmol/L (98-107); Estimated GFR 17; Glucose 64 mg/dL (83-110); Potassium 3.4 mmol/L (3.5-5.1); Sodium 131 mmol/L (136-145)
[2024-04-11 06:49] LABS: #Basophils 0.04 10x3/uL (0.0-0.2); %Basophils 0.3 % (0.0-1.0); %Eosinophils 1.5 % (0.0-10.0); %Lymphocytes 9.5 % (21.0-51.0); %Monocytes 8.9 % (0.0-10.0); Hematocrit 32.4 % (36.0-47.0); Hemoglobin 10.3 g/dL (12.0-16.0); Mean Corpuscular HGB CONC 31.8 g/dL (32.0-36.0); Mean Corpuscular Hemoglobin 32.7 pg (27.0-31.0); Mean Corpuscular Volume 102.9 fL (78.0-98.0); Platelet Count 135 10x3/uL (130-400); RBC Distribution Width 16.4 % (11.5-14.5); Red Blood Cell (RBC) Count 3.15 mill/uL (4.20-5.40)
[2024-04-11] MEDS ORDERED: Heparin 10,000 UNITS/ 10 ML VIAL ONE (09:28)
[2024-04-12 11:22] LABS: #Basophils Less than 0.03 10x3/uL (0.0-0.2); %Basophils 0.1 % (0.0-1.0); %Eosinophils 1.1 % (0.0-10.0); %Lymphocytes 8.8 % (21.0-51.0); %Monocytes 7.3 % (0.0-10.0); %Neutrophils 82.3 % (42.0-75.0); Hematocrit 34.8 % (36.0-47.0); Mean Corpuscular HGB CONC 31.6 g/dL (32.0-36.0); Mean Corpuscular Volume 107.4 fL (78.0-98.0); Mean Platelet Volume 10.1 fL (7.4-10.4); Platelet Count 169 10x3/uL (130-400); RBC Distribution Width 16.7 % (11.5-14.5); Red Blood Cell (RBC) Count 3.24 mill/uL (4.20-5.40)
[2024-04-12 11:43] LABS: Anion Gap 11 mmol/L (10-20); BUN (Urea Nitrogen) 8 mg/dL (9.8-20.1); Calc. Creatinine Clearance 33 mL/min (70-130); Calcium 8.6 mg/dL (7.8-10.44); Carbon Dioxide 30 mmol/L (23-31); Chloride 102 mmol/L (98-107); Estimated GFR 23; Glucose 85 mg/dL (83-110); Sodium 139 mmol/L (136-145)
[2024-04-13 08:16] LABS: #Basophils 0.03 10x3/uL (0.0-0.2); %Basophils 0.2 % (0.0-1.0); %Eosinophils 1.7 % (0.0-10.0); %Lymphocytes 10.6 % (21.0-51.0); %Monocytes 7.8 % (0.0-10.0); %Neutrophils 79.1 % (42.0-75.0); Hematocrit 35.1 % (36.0-47.0); Hemoglobin 10.9 g/dL (12.0-16.0); Mean Corpuscular HGB CONC 31.1 g/dL (32.0-36.0); Mean Corpuscular Hemoglobin 32.5 pg (27.0-31.0); Mean Corpuscular Volume 104.8 fL (78.0-98.0); Mean Platelet Volume 10.1 fL (7.4-10.4); Platelet Count 179 10x3/uL (130-400); RBC Distribution Width 16.9 % (11.5-14.5); Red Blood Cell (RBC) Count 3.35 mill/uL (4.20-5.40)
[2024-04-13 08:34] LABS: Anion Gap 15 mmol/L (10-20); BUN (Urea Nitrogen) 12 mg/dL (9.8-20.1); Calc. Creatinine Clearance 26 mL/min (70-130); Calcium 8.8 mg/dL (7.8-10.44); Carbon Dioxide 27 mmol/L (23-31); Chloride 100 mmol/L (98-107); Estimated GFR 18; Glucose 64 mg/dL (83-110); Potassium 3.6 mmol/L (3.5-5.1); Sodium 138 mmol/L (136-145)
[2024-04-14 05:44] LABS: #Basophils 0.04 10x3/uL (0.0-0.2); %Basophils 0.3 % (0.0-1.0); %Lymphocytes 12.8 % (21.0-51.0); %Monocytes 8.5 % (0.0-10.0); %Neutrophils 75.8 % (42.0-75.0); Hematocrit 32.7 % (36.0-47.0); Hemoglobin 10.5 g/dL (12.0-16.0); Mean Corpuscular HGB CONC 32.1 g/dL (32.0-36.0); Mean Corpuscular Hemoglobin 32.9 pg (27.0-31.0); Mean Corpuscular Volume 102.5 fL (78.0-98.0); Platelet Count 161 10x3/uL (130-400); Red Blood Cell (RBC) Count 3.19 mill/uL (4.20-5.40)
[2024-04-14 05:56] LABS: Anion Gap 15 mmol/L (10-20); BUN (Urea Nitrogen) 18 mg/dL (9.8-20.1); Calc. Creatinine Clearance 22 mL/min (70-130); Calcium 8.3 mg/dL (7.8-10.44); Carbon Dioxide 26 mmol/L (23-31); Chloride 99 mmol/L (98-107); Estimated GFR 14; Glucose 86 mg/dL (83-110); Potassium 4.1 mmol/L (3.5-5.1); Sodium 136 mmol/L (136-145)
[2024-04-14] MEDS ORDERED: Heparin 10,000 UNITS/ 10 ML VIAL ONE (12:29)
[2024-04-15 06:19] LABS: #Basophils Less than 0.03 10x3/uL (0.0-0.2); %Basophils 0.2 % (0.0-1.0); %Lymphocytes 11.8 % (21.0-51.0); %Monocytes 9.1 % (0.0-10.0); %Neutrophils 77.3 % (42.0-75.0); Hematocrit 30.6 % (36.0-47.0); Hemoglobin 9.8 g/dL (12.0-16.0); Mean Corpuscular Hemoglobin 34.3 pg (27.0-31.0); Mean Platelet Volume 9.8 fL (7.4-10.4); Platelet Count 160 10x3/uL (130-400); RBC Distribution Width 17.3 % (11.5-14.5); Red Blood Cell (RBC) Count 2.86 mill/uL (4.20-5.40)
[2024-04-15 06:50] LABS: Anion Gap 12 mmol/L (10-20); BUN (Urea Nitrogen) 10 mg/dL (9.8-20.1); Calc. Creatinine Clearance 32 mL/min (70-130); Calcium 8.2 mg/dL (7.8-10.44); Carbon Dioxide 28 mmol/L (23-31); Chloride 101 mmol/L (98-107); Estimated GFR 22; Glucose 77 mg/dL (83-110); Potassium 3.8 mmol/L (3.5-5.1); Sodium 137 mmol/L (136-145)
[2024-04-16 06:24] LABS: #Basophils 0.06 10x3/uL (0.0-0.2); %Basophils 0.5 % (0.0-1.0); %Eosinophils 1.3 % (0.0-10.0); %Lymphocytes 13.9 % (21.0-51.0); %Monocytes 8.7 % (0.0-10.0); Hematocrit 32.3 % (36.0-47.0); Hemoglobin 10.4 g/dL (12.0-16.0); Mean Corpuscular HGB CONC 32.2 g/dL (32.0-36.0); Mean Corpuscular Hemoglobin 32.7 pg (27.0-31.0); Mean Corpuscular Volume 101.6 fL (78.0-98.0); Platelet Count 183 10x3/uL (130-400); RBC Distribution Width 17.7 % (11.5-14.5); Red Blood Cell (RBC) Count 3.18 mill/uL (4.20-5.40)
[2024-04-16 06:36] LABS: Anion Gap 12 mmol/L (10-20); BUN (Urea Nitrogen) 15 mg/dL (9.8-20.1); Calc. Creatinine Clearance 24 mL/min (70-130); Calcium 8.5 mg/dL (7.8-10.44); Carbon Dioxide 27 mmol/L (23-31); Chloride 99 mmol/L (98-107); Estimated GFR 16; Glucose 74 mg/dL (83-110); Potassium 3.9 mmol/L (3.5-5.1); Sodium 134 mmol/L (136-145)
[2024-04-16] MEDS ORDERED: Heparin 10,000 UNITS/ 10 ML VIAL ONE (12:08)
[2024-04-17 01:39] VITALS: TEMP 98.3
[2024-04-17 06:56] LABS: Anion Gap 11 mmol/L (10-20); BUN (Urea Nitrogen) 8 mg/dL (9.8-20.1); Calc. Creatinine Clearance 35 mL/min (70-130); Calcium 8.1 mg/dL (7.8-10.44); Carbon Dioxide 27 mmol/L (23-31); Chloride 99 mmol/L (98-107); Estimated GFR 25; Glucose 84 mg/dL (83-110); Potassium 3.3 mmol/L (3.5-5.1); Sodium 134 mmol/L (136-145)
[2024-04-17 07:24] LABS: #Basophils 0.03 10x3/uL (0.0-0.2); %Basophils 0.3 % (0.0-1.0); %Eosinophils 0.9 % (0.0-10.0); %Lymphocytes 11.4 % (21.0-51.0); %Monocytes 9.3 % (0.0-10.0); %Neutrophils 77.4 % (42.0-75.0); Hematocrit 31.1 % (36.0-47.0); Mean Corpuscular HGB CONC 32.2 g/dL (32.0-36.0); Mean Corpuscular Hemoglobin 33.7 pg (27.0-31.0); Mean Corpuscular Volume 104.7 fL (78.0-98.0); Mean Platelet Volume 9.9 fL (7.4-10.4); Platelet Count 182 10x3/uL (130-400); RBC Distribution Width 18.1 % (11.5-14.5); Red Blood Cell (RBC) Count 2.97 mill/uL (4.20-5.40)
[2024-04-17] MEDS: Loperamide HCl 2 MG CAP PO PRN (11:41)
[2024-04-17 16:28] VITALS: BP 137/79
== END 2024-04-17 17:20 | DRG 853 ==
LOC: ERS 09:14 → SUATTDRO 09:14 → 2NO 14:51 → T4-B 04-08 18:31
PROVIDERS: ADMIT Internal Medicine; ATTEND Internal Medicine
PROC: 3E03329 Introduction of Other Anti-infective into Peripheral Vein, Percutaneous Approach (ICD-10-PCS; 2024-03-24)
PROC: 0JB70ZZ Excision of Back Subcutaneous Tissue and Fascia, Open Approach (ICD-10-PCS; principal; 2024-03-26)
PROC: 0JB70ZZ Excision of Back Subcutaneous Tissue and Fascia, Open Approach (ICD-10-PCS; 2024-04-04)
PROC: 3E033XZ Introduction of Vasopressor into Peripheral Vein, Percutaneous Approach (ICD-10-PCS; 2024-04-04)
DX: A41.59 Other Gram-negative sepsis (principal); J96.21 Acute and chronic respiratory failure with hypoxia; L89.153 Pressure ulcer of sacral region, stage 3; N18.6 End stage renal disease; I13.2 Hypertensive heart and chronic kidney disease with heart failure and with stage 5 chronic kidney disease, or end stage renal disease; I50.32 Chronic diastolic (congestive) heart failure; I48.92 Unspecified atrial flutter; D63.1 Anemia in chronic kidney disease; E66.01 Morbid (severe) obesity due to excess calories; Z68.38 Body mass index [BMI] 38.0-38.9, adult; Z99.2 Dependence on renal dialysis; E11.22 Type 2 diabetes mellitus with diabetic chronic kidney disease; Z79.899 Other long term (current) drug therapy; Z79.82 Long term (current) use of aspirin; Z79.4 Long term (current) use of insulin; E87.6 Hypokalemia; I49.5 Sick sinus syndrome; I25.10 Atherosclerotic heart disease of native coronary artery without angina pectoris; I35.0 Nonrheumatic aortic (valve) stenosis; E11.51 Type 2 diabetes mellitus with diabetic peripheral angiopathy without gangrene; Z88.5 Allergy status to narcotic agent; Z88.1 Allergy status to other antibiotic agents; Z91.048 Other nonmedicinal substance allergy status
CPT/HCPCS: 36415; 36416; 70450; 70551; 71045; 80048; 80053; 80202; 82550; 83605; 83690; 83735; 83880; 84100; 84145; 84443; 84484; 85025; 86141; 87040; 87070; 87077; 87149; 87186; 87205; 90935; 93005; 93010; 93306; 96374; 96375; 97139; G0257; J0692; J0696; J1644; J1815; J2001; J2270; J2272; J2405; J2704; J3010; J3370; J3370-JW; J3480; J3490